=== PATIENT | male | born 1960 | race Caucasian/White ===

== ENCOUNTER 2017-01-28 17:01 | Emergency (ER) | payer MEDICAID ==
[~2017-01-28] VITALS: Ht 175.3 cm; Wt 70.0 kg
[~2017-01-28 17:01] MED LIST: ALPR0.25 PO; FAMO20TA7 PO; GABA600T2 PO; LORA-445 PO; ONDA8TAB16 SL; TRAZ100T15 PO; [UNRECOGNIZED DRUG - REMARK]
[2017-01-28 19:05] VITALS: BP 94/61
== END 2017-01-28 19:23 | disposition home or self-care (01) ==
LOC: ED 19:17
DX: F10.220 Alcohol dependence with intoxication, uncomplicated (principal); B34.9 Viral infection, unspecified; J44.9 Chronic obstructive pulmonary disease, unspecified; M06.9 Rheumatoid arthritis, unspecified; Z85.118 Personal history of other malignant neoplasm of bronchus and lung
CPT/HCPCS: 71010; 99283

== ENCOUNTER 2017-01-29 13:52 | Emergency (ER) | payer MEDICAID ==
[~2017-01-29] VITALS: Ht 152.4 cm; Wt 56.8 kg
[2017-01-29] MEDS ORDERED: THIAMINE 100MG TABLET PO ONE (14:30)
[2017-01-29] MEDS ORDERED: SODIUM CHLORIDE FLUSH 10ML SYR IVF ONE (14:30)
[2017-01-29] MEDS ORDERED: SODIUM CHLORIDE 0.9% 1,000ML IVBOLUS ONE ×2 (14:30→16:30)
[2017-01-29] MEDS ORDERED: LORazepam 2 MG/ML, 1ML IVPush ONE (14:30)
[2017-01-29] MEDS ORDERED: THIAMINE 100MG TABLET ONE (14:40)
[2017-01-29] MEDS ORDERED: LORazepam 2 MG/ML, 1ML ONE (14:43)
[2017-01-29 15:24] LABS: HEMOGLOBIN 13.8 g/dL (13.7-18.0)
[2017-01-29 15:37] LABS: ASPARTATE AMINO TRANSFERASE 22 U/L (15-37); BLOOD UREA NITROGEN 11 mg/dL (7-18)
[2017-01-29] MEDS ORDERED: DEXTROSE 50%, 50ML SYRINGE ONE (15:41)
[2017-01-29 19:00] VITALS: BP 105/74
== END 2017-01-29 19:07 | disposition home or self-care (01) ==
LOC: ED 18:55
DX: F10.229 Alcohol dependence with intoxication, unspecified (principal); Y90.9 Presence of alcohol in blood, level not specified; R10.13 Epigastric pain; K80.20 Calculus of gallbladder without cholecystitis without obstruction
CPT/HCPCS: 36415; 74000; 76700; 80053; 83690; 85025; 85610; 96361; 96374; 99285; J2060; J7030

== ENCOUNTER 2017-02-06 18:44 | Emergency (ER) | payer MEDICAID ==
[~2017-02-06] VITALS: Ht 162.6 cm; Wt 65.5 kg
[~2017-02-06 18:44] MED LIST changes: +GUAI200T3 PO; +LORA-446 PO; +MAGN400T26 PO
[2017-02-06] MEDS ORDERED: ONDANSETRON ODT 4 MG ONE (19:14)
[2017-02-06] MEDS ORDERED: ONDANSETRON ODT 4 MG PO ONE (19:30)
[2017-02-06 19:35] LABS: HEMOGLOBIN 11.3 g/dL (13.7-18.0)
[2017-02-06 19:42] LABS: ASPARTATE AMINO TRANSFERASE 25 U/L (15-37); BLOOD UREA NITROGEN 5 mg/dL (7-18)
[2017-02-06 20:14] VITALS: BP 91/65
[2017-02-06] MEDS ORDERED: CHLORDIAZEPOXIDE 25 MG CAPSULE PO PRN (20:30)
== END 2017-02-06 20:41 | disposition home or self-care (01) ==
LOC: ED 20:35
DX: F10.20 Alcohol dependence, uncomplicated (principal); C34.90 Malignant neoplasm of unspecified part of unspecified bronchus or lung; M06.9 Rheumatoid arthritis, unspecified
CPT/HCPCS: 36415; 80053; 80307; 83690; 85025; 99284; Q0162

== ENCOUNTER 2017-02-07 00:17 | Emergency (ER) | payer MEDICAID ==
[~2017-02-07] VITALS: Ht 167.6 cm; Wt 60.0 kg
[2017-02-07 01:11] VITALS: BP 103/74
== END 2017-02-07 01:13 | disposition home or self-care (01) ==
LOC: ED 01:07
DX: F10.229 Alcohol dependence with intoxication, unspecified (principal); J44.9 Chronic obstructive pulmonary disease, unspecified; F10.20 Alcohol dependence, uncomplicated; Y90.9 Presence of alcohol in blood, level not specified
CPT/HCPCS: 99283

== ENCOUNTER 2017-02-13 01:52 | Emergency (ER) | payer MEDICAID ==
[~2017-02-13] VITALS: Ht 160 cm; Wt 62.0 kg
[2017-02-13] MEDS ORDERED: DICYCLOMINE 10 MG/ML, 2ML IM ONE (02:30)
[2017-02-13 02:56] LABS: ASPARTATE AMINO TRANSFERASE 17 U/L (15-37); BLOOD UREA NITROGEN 6 mg/dL (7-18)
[2017-02-13] MEDS ORDERED: PLEASE ENTER ALLERGIES MC SCH ×2 (03:00)
[2017-02-13 03:10] LABS: HEMOGLOBIN 12.9 g/dL (13.7-18.0)
[2017-02-13 03:23] LABS: DIFF TOTAL CELLS COUNTED 100 CELL DIFF
[2017-02-13 03:27] LABS: ANISOCYTOSIS 2+; HYPOCHROMIA 1+; OVALOCYTES 1+; POLYCHROMASIA 1+; VERIFY COUNTS? YES
[2017-02-13] MEDS ORDERED: FAMOTIDINE 20 MG TABLET ONE ×2 (03:59→07:45)
[2017-02-13] MEDS ORDERED: ONDANSETRON ODT 4 MG ONE ×2 (03:59→07:46)
[2017-02-13] MEDS ORDERED: MAALOX/HYOSCYAMINE/LIDOCAINE 45 ML BOTTLE ONE ×2 (03:59→07:46)
[2017-02-13] MEDS ORDERED: ONDANSETRON ODT 4 MG PO ONE (04:00)
[2017-02-13] MEDS ORDERED: FAMOTIDINE 20 MG TABLET PO ONE (04:00)
[2017-02-13] MEDS ORDERED: MAALOX/HYOSCYAMINE/LIDOCAINE 45 ML BOTTLE PO ONE (04:00)
[2017-02-13 08:50] VITALS: BP 91/55
== END 2017-02-13 08:52 | disposition home or self-care (01) ==
LOC: EDBD → MERGE 01:52 → ED 03:07
DX: K29.20 Alcoholic gastritis without bleeding (principal); F10.20 Alcohol dependence, uncomplicated; J44.9 Chronic obstructive pulmonary disease, unspecified; Z85.118 Personal history of other malignant neoplasm of bronchus and lung
CPT/HCPCS: 36415; 80053; 80307; 83690; 85025; 96372; 99284; J0500; Q0162

== ENCOUNTER 2017-03-20 19:55 | Emergency (ER) | payer MEDICAID ==
[~2017-03-20] VITALS: Ht 162.6 cm; Wt 60.0 kg
[2017-03-20 20:31] LABS: BLOOD UREA NITROGEN 6 mg/dL (7-18)
[2017-03-20 20:40] LABS: DIFF TOTAL CELLS COUNTED 100 CELL DIFF
[2017-03-20 20:46] LABS: ANISOCYTOSIS 1+; OVALOCYTES 1+; VERIFY COUNTS? YES
[2017-03-20 20:47] LABS: MICROCYTOSIS 1+; POLYCHROMASIA 1+
[2017-03-20 20:53] VITALS: BP 106/76
== END 2017-03-20 22:04 | disposition home or self-care (01) ==
LOC: ED 21:15
DX: F10.220 Alcohol dependence with intoxication, uncomplicated (principal); J44.9 Chronic obstructive pulmonary disease, unspecified; F10.20 Alcohol dependence, uncomplicated; L93.0 Discoid lupus erythematosus; M06.9 Rheumatoid arthritis, unspecified; Z85.118 Personal history of other malignant neoplasm of bronchus and lung; Z87.01 Personal history of pneumonia (recurrent)
CPT/HCPCS: 36415; 71010; 80048; 82040; 85025

== ENCOUNTER 2017-03-21 04:40 | Emergency (ER) | payer MEDICAID ==
[~2017-03-21] VITALS: Ht 162.6 cm; Wt 60.0 kg
[2017-03-21] MEDS ORDERED: ALBUTEROL/IPRATROPIUM 2.5MG/0.5MG, 3 ML NPPB ONE (06:00)
[2017-03-21] MEDS ORDERED: ALBUTEROL/IPRATROPIUM 2.5MG/0.5MG, 3 ML ONE ×2 (06:07→08:39)
[2017-03-21 06:15] LABS: ACETAMINOPHEN < 2 mcg/mL (10-30)
[2017-03-21 12:01] VITALS: BP 123/71
== END 2017-03-21 12:31 | disposition home or self-care (01) ==
LOC: ED 05:20
DX: F10.220 Alcohol dependence with intoxication, uncomplicated (principal); F17.210 Nicotine dependence, cigarettes, uncomplicated; Z87.01 Personal history of pneumonia (recurrent); Z88.0 Allergy status to penicillin; Z88.5 Allergy status to narcotic agent
CPT/HCPCS: 36415; 80307; 80329; 94640; 99284; J7512; J7620; G0480

== ENCOUNTER 2017-03-21 16:22 | Emergency (ER) | payer MEDICAID ==
[~2017-03-21] VITALS: Ht 167.6 cm; Wt 65.0 kg
== END 2017-03-21 17:11 | disposition home or self-care (01) ==
LOC: ED 17:02
DX: F10.229 Alcohol dependence with intoxication, unspecified (principal); F19.94 Other psychoactive substance use, unspecified with psychoactive substance-induced mood disorder; C34.90 Malignant neoplasm of unspecified part of unspecified bronchus or lung
CPT/HCPCS: 99283

== ENCOUNTER 2017-03-22 10:31 | Emergency (ER) | payer MEDICAID ==
[2017-03-22 10:39] VITALS: BP 116/84
== END 2017-03-22 12:29 | disposition home or self-care (01) ==
LOC: ED 12:23
DX: F10.229 Alcohol dependence with intoxication, unspecified (principal); Y90.9 Presence of alcohol in blood, level not specified
CPT/HCPCS: 99283

== ENCOUNTER 2017-04-11 03:04 | Emergency (ER) | payer MEDICAID ==
[~2017-04-11] VITALS: Ht 162.6 cm; Wt 63.0 kg
[2017-04-11 03:09] VITALS: BP 116/73
[2017-04-11] MEDS ORDERED: ONDANSETRON ODT 8 MG PO ONE (03:30)
[2017-04-11] MEDS ORDERED: ONDANSETRON ODT 8 MG ONE (03:46)
[2017-04-11 03:54] LABS: BLOOD UREA NITROGEN 6 mg/dL (7-18)
[2017-04-11 03:59] LABS: ASPARTATE AMINO TRANSFERASE 92 U/L (15-37)
== END 2017-04-11 04:31 | disposition home or self-care (01) ==
LOC: ED 03:43
DX: R10.84 Generalized abdominal pain (principal); R11.10 Vomiting, unspecified; I48.91 Unspecified atrial fibrillation; Z85.118 Personal history of other malignant neoplasm of bronchus and lung; Z88.0 Allergy status to penicillin; Z88.6 Allergy status to analgesic agent; Z90.49 Acquired absence of other specified parts of digestive tract; F10.120 Alcohol abuse with intoxication, uncomplicated; F17.210 Nicotine dependence, cigarettes, uncomplicated
CPT/HCPCS: 36415; 80053; 80307; 83690; 85025; 99284; Q0162

== ENCOUNTER 2017-04-18 16:51 | Emergency (ER) | payer MEDICAID ==
[~2017-04-18] VITALS: Ht 162.6 cm; Wt 62.0 kg
[2017-04-18 17:01] VITALS: BP 94/70
[2017-04-18 17:50] LABS: BLOOD UREA NITROGEN 11 mg/dL (7-18)
[2017-04-18 17:53] LABS: ASPARTATE AMINO TRANSFERASE 30 U/L (15-37)
[2017-04-18 18:11] LABS: DIFF TOTAL CELLS COUNTED 100 CELL DIFF
[2017-04-18 18:14] LABS: VERIFY COUNTS? YES
[2017-04-18 18:15] LABS: ANISOCYTOSIS 1+
[2017-04-18 18:16] LABS: MICROCYTOSIS 1+; OVALOCYTES 1+
[2017-04-18] MEDS ORDERED: ONDANSETRON ODT 4 MG PO ONE (19:30)
== END 2017-04-18 22:58 | disposition home or self-care (01) ==
LOC: ED 17:18
DX: F10.120 Alcohol abuse with intoxication, uncomplicated (principal); Z72.89 Other problems related to lifestyle; R10.84 Generalized abdominal pain; J44.9 Chronic obstructive pulmonary disease, unspecified; Z91.14 Patient's other noncompliance with medication regimen; Z85.118 Personal history of other malignant neoplasm of bronchus and lung; F19.10 Other psychoactive substance abuse, uncomplicated
CPT/HCPCS: 36415; 80053; 83690; 85025; 99284

== ENCOUNTER 2017-08-23 17:22 | Emergency (ER) | payer MEDICAID ==
[~2017-08-23] VITALS: Ht 165.1 cm; Wt 55.0 kg
[2017-08-23] MEDS ORDERED: ONDANSETRON 2MG/ML, 2ML IVPush ONE (18:00)
[2017-08-23] MEDS ORDERED: ONDANSETRON 2MG/ML, 2ML ONE (18:47)
[2017-08-23 18:52] LABS: HEMATOCRIT 36.6 % (39.2-51.8); HEMOGLOBIN 11.8 g/dL (13.7-18.0); WHITE BLOOD COUNT 5.6 x10^3/uL (3.4-10)
[2017-08-23] MEDS ORDERED: SODIUM CHLORIDE 0.9% 1,000 ML IV ONE (19:00)
[2017-08-23] MEDS ORDERED: SODIUM CHLORIDE FLUSH 10ML SYR IVF ONE (19:00)
[2017-08-23 19:11] LABS: DIFF TOTAL CELLS COUNTED 100 CELL DIFF
[2017-08-23 19:13] LABS: ANISOCYTOSIS 1+; MICROCYTOSIS 1+; OVALOCYTES 1+
[2017-08-23 19:15] LABS: VERIFY COUNTS? YES
[2017-08-23 19:41] LABS: ASPARTATE AMINO TRANSFERASE 42 U/L (15-37); BLOOD UREA NITROGEN 8 mg/dL (7-18)
[2017-08-23] MEDS ORDERED: OMNIPAQUE 350 MG/ML, 100ML BOTTLE ONE (21:36)
[2017-08-23 21:40] VITALS: BP 134/92
== END 2017-08-23 22:06 | disposition home or self-care (01) ==
LOC: ED 20:41
DX: K52.9 Noninfective gastroenteritis and colitis, unspecified (principal); F41.9 Anxiety disorder, unspecified; J44.9 Chronic obstructive pulmonary disease, unspecified; F17.200 Nicotine dependence, unspecified, uncomplicated; Z88.0 Allergy status to penicillin; Z90.49 Acquired absence of other specified parts of digestive tract
CPT/HCPCS: 36415; 74177; 80053; 81003; 83605; 83690; 85025; 85610; 85730; 96361; 96374; 99285; J2405; J7030; Q9967

== ENCOUNTER 2017-10-18 14:05 | Emergency (ER) | payer MEDICAID ==
[~2017-10-18] VITALS: Ht 162.6 cm; Wt 55.0 kg
[2017-10-18] MEDS ORDERED: SODIUM CHLORIDE 0.9% 1,000 ML IV ONE (14:29)
[2017-10-18] MEDS ORDERED: SODIUM CHLORIDE FLUSH 10ML SYR IVF ONE (14:30)
[2017-10-18] MEDS ORDERED: SODIUM CHLORIDE 0.9% 1,000ML IVBOLUS ONE (14:30)
[2017-10-18] MEDS ORDERED: PLEASE ENTER HEIGHT AND WEIGHT MC SCH (15:00)
[2017-10-18 15:17] LABS: BLOOD UREA NITROGEN 4 mg/dL (7-18)
[2017-10-18 15:21] LABS: ASPARTATE AMINO TRANSFERASE 140 U/L (15-37)
[2017-10-18 15:24] LABS: IS PT STATUS REG ER OR PRE ER? YES
[2017-10-18 15:29] LABS: HEMOGLOBIN 12.5 g/dL (13.7-18.0); WHITE BLOOD COUNT 4.6 x10^3/uL (3.4-10)
[2017-10-18 15:43] LABS: DIFF TOTAL CELLS COUNTED 100 CELL DIFF
[2017-10-18 16:02] VITALS: BP 109/54
[2017-10-18 16:18] LABS: VERIFY COUNTS? YES
[2017-10-18 16:20] LABS: ANISOCYTOSIS 1+; HYPOCHROMIA 1+; MICROCYTOSIS 1+
[2017-10-18 16:21] LABS: OVALOCYTES 1+
== END 2017-10-18 16:04 | disposition home or self-care (01) ==
LOC: ED 14:59
DX: F10.220 Alcohol dependence with intoxication, uncomplicated (principal); E87.1 Hypo-osmolality and hyponatremia
CPT/HCPCS: 36415; 70450; 71010; 80053; 80307; 83690; 84484; 85025; 85610; 93005; 96360; 99285; J7030; G0479

== ENCOUNTER 2017-10-27 13:16 | Emergency (ER) | payer MEDICAID ==
[~2017-10-27] VITALS: Ht 162.6 cm; Wt 65.0 kg
[2017-10-27 14:45] VITALS: BP 109/75
== END 2017-10-27 14:52 | disposition home or self-care (01) ==
LOC: EDBD → MERGE 13:16 → ED 14:25
DX: S42.032A Displaced fracture of lateral end of left clavicle, initial encounter for closed fracture (principal); F17.200 Nicotine dependence, unspecified, uncomplicated; J44.9 Chronic obstructive pulmonary disease, unspecified; W01.0XXA Fall on same level from slipping, tripping and stumbling without subsequent striking against object, initial encounter; Y93.01 Activity, walking, marching and hiking; Y92.481 Parking lot as the place of occurrence of the external cause; Y99.8 Other external cause status
CPT/HCPCS: 99284

== ENCOUNTER 2018-01-16 12:38 | Emergency (ER) | payer MEDICAID ==
[~2018-01-16] VITALS: Ht 162.6 cm; Wt 54.5 kg
[2018-01-16] MEDS ORDERED: SODIUM CHLORIDE 0.9% 1,000ML IVBOLUS ONE (13:00)
[2018-01-16 13:20] LABS: ALBUMIN 3.2 g/dL (3.4-5.0); ANION GAP 13 mmol/L (5-15); CALCIUM 7.8 mg/dL (8.5-10.1); CHLORIDE 98 mmol/L (98-107); CREATININE 0.79 mg/dL (0.7-1.3)
[2018-01-16 13:22] LABS: MD YES; MEAN CORPUSCULAR HEMOGLOBIN 26.3 pg (27.5-34.5); MEAN CORPUSCULAR HGB CONC 32.3 g/dL (33.2-36.2); MEAN CORPUSCULAR VOLUME 81.6 fL (81-97); MEAN PLATELET VOLUME 6.9 fL (7.4-10.4); PLATELET COUNT 119 x10^3/uL (130-400); RED BLOOD COUNT 4.12 x10^6/uL (4.38-5.82); RED CELL DISTRIBUTION WIDTH 19.5 % (9.4-14.8)
[2018-01-16] MEDS ORDERED: THIAMINE 100MG TABLET PO ONE (13:30)
[2018-01-16] MEDS ORDERED: THIAMINE 100MG TABLET ONE (13:32)
[2018-01-16 13:33] LABS: ANISOCYTOSIS 1+; EOS#(MANUAL) 0.05 x10^3/uL (0.0-0.4); EOS% (MANUAL) 1 % (1-7); LYMPH#(MANUAL) 1.27 x10^3/uL (1-3.4); LYMPHS% (MANUAL) 26 % (22-44); MICROCYTOSIS 1+; MONOS#(MANUAL) 0.34 x10^3/uL (0.3-2.7); MONOS% (MANUAL) 7 % (2-9); POLYCHROMASIA 1+; SEG#(MANUAL) 3.23 x10^3/uL (1.8-6.8); SEGS% (MANUAL) 66 % (42-75); TARGET CELLS 1+
[2018-01-16 13:35] LABS: <PLATELET ESTIMATE> DECREASED; <PLT MORPHOLOGY> NORMAL PLT MORPH
[2018-01-16 14:40] VITALS: BP 124/92
[2018-01-16] MEDS ORDERED: LORazepam 1MG TABLET PO ONE (15:00)
== END 2018-01-16 15:26 | disposition home or self-care (01) ==
LOC: ED 15:22
DX: S06.0X0A Concussion without loss of consciousness, initial encounter (principal); S00.93XA Contusion of unspecified part of head, initial encounter; G89.29 Other chronic pain; M54.2 Cervicalgia; J44.1 Chronic obstructive pulmonary disease with (acute) exacerbation; D50.0 Iron deficiency anemia secondary to blood loss (chronic); F41.9 Anxiety disorder, unspecified; F17.210 Nicotine dependence, cigarettes, uncomplicated; M06.9 Rheumatoid arthritis, unspecified; I48.91 Unspecified atrial fibrillation; E87.1 Hypo-osmolality and hyponatremia; F10.229 Alcohol dependence with intoxication, unspecified; W00.0XXA Fall on same level due to ice and snow, initial encounter; Y93.89 Activity, other specified; Y92.410 Unspecified street and highway as the place of occurrence of the external cause; Y99.8 Other external cause status
CPT/HCPCS: 36415; 70450; 71046; 72125; 80048; 82040; 85025; 93005; 99285

== ENCOUNTER 2018-01-27 20:28 | Emergency (ER) | payer MEDICAID ==
[~2018-01-27] VITALS: Ht 157.5 cm; Wt 59.0 kg
[2018-01-27 20:31] VITALS: BP 109/79
== END 2018-01-27 22:16 | disposition left against medical advice (07) ==
LOC: ED 21:00
DX: J06.9 Acute upper respiratory infection, unspecified (principal)
CPT/HCPCS: 71045; 93005; 99284

== ENCOUNTER 2018-04-20 14:36 | Emergency (ER) | payer MEDICAID ==
[~2018-04-20] VITALS: Ht 175.3 cm; Wt 87.0 kg
[2018-04-20] MEDS ORDERED: THIAMINE 100MG TABLET PO ONE (15:00)
[2018-04-20] MEDS ORDERED: THIAMINE 100MG TABLET ONE (15:18)
[2018-04-20] MEDS ORDERED: ONDANSETRON ODT 4 MG PO ONE (20:30)
[2018-04-20] MEDS ORDERED: ONDANSETRON ODT 4 MG ONE (20:36)
[2018-04-20 20:38] VITALS: BP 91/55
== END 2018-04-20 22:07 | disposition home or self-care (01) ==
LOC: ED 16:03
DX: F10.220 Alcohol dependence with intoxication, uncomplicated (principal); J44.9 Chronic obstructive pulmonary disease, unspecified; I48.91 Unspecified atrial fibrillation; F17.210 Nicotine dependence, cigarettes, uncomplicated; Z79.899 Other long term (current) drug therapy
CPT/HCPCS: 36415; 80307; 99283; Q0162

== ENCOUNTER 2020-09-11 15:15 | Inpatient (IN) | payer MEDICAID ==
[~2020-09-11] VITALS: Ht 160 cm; Wt 51.8 kg
[~2020-09-11 15:15] MED LIST changes: -GABA600T2 PO; +GABA600T7 PO; -GUAI200T3 PO; +GUAI200T37 PO; +TRAZ-175 PO; -TRAZ100T15 PO
--- NOTE | 2020-09-11 15:25 | NUR ---
PT TO [facility] FROM [facility] AT THIS TIME
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
[2020-09-11 16:12] LABS: BASOPHILS % (AUTO) 0 % (0-1); EOSINOPHILS % (AUTO) 0 % (1-7); LYMPHOCYTES % (AUTO) 6 % (22-44); MEAN CORPUSCULAR HEMOGLOBIN 28.5 pg (27.5-34.5); MEAN CORPUSCULAR HGB CONC 32.5 g/dL (33.2-36.2); MEAN PLATELET VOLUME 6.9 fL (7.4-10.4); MONOCYTES % (AUTO) 7 % (2-9); NEUTROPHILS % (AUTO) 87 % (42-75); PLATELET COUNT 160 x10^3/uL (130-400); RED BLOOD COUNT 3.96 x10^6/uL (4.38-5.82); RED CELL DISTRIBUTION WIDTH 19.7 % (9.4-14.8)
[2020-09-11 16:21] LABS: ALANINE AMINOTRANSFERASE 29 U/L (12-78); ALBUMIN 3.5 g/dL (3.4-5.0); CALCIUM 7.9 mg/dL (8.5-10.1); CHLORIDE 88 mmol/L (98-107); CREATININE 0.64 mg/dL (0.7-1.3)
[2020-09-11 16:23] LABS: ALKALINE PHOSPHATASE 86 U/L (45-117); BILIRUBIN,TOTAL 0.8 mg/dL (0.2-1.0); TOTAL PROTEIN 7.4 g/dL (6.4-8.2)
[2020-09-11 16:30] LABS: ANION GAP 24 mmol/L (5-15)
[2020-09-11] MEDS ORDERED: POTASSIUM CHLORIDE 20 MEQ TAB.ER.PRT PO ONE (17:00)
[2020-09-11] MEDS ORDERED: SODIUM CHLORIDE FLUSH 10ML SYR IVF ONE (17:00)
[2020-09-11] MEDS ORDERED: SODIUM CHLORIDE 0.9% 1,000ML IVBOLUS ONE (17:00)
[2020-09-11] MEDS ORDERED: MAGNESIUM SULFATE/D5W 100 ML IVPB ONE (17:00)
[2020-09-11] MEDS ORDERED: POTASSIUM CHLORIDE 20 MEQ TAB.ER.PRT ONE (17:00)
[2020-09-11] MEDS ORDERED: POTASSIUM CHLORIDE 40 MEQ in SODIUM CHLORIDE 0.9% 500 ML IV ONE (17:00)
[2020-09-11 17:04] LABS: MD SCAN
--- NOTE | 2020-09-11 17:41 | NUR ---
PER ERMD OK TO FEED PT. MEAL TRAY ORDERED. PIV ACCESS ACHEIVED X2, AWAITING MEDICATIONS FROM PHARMACY.
--- NOTE | 2020-09-11 18:29 | NUR ---
PT GIVEN MEAL TRAY, MEDICATED PER JAN, VSS, NAD
--- NOTE | 2020-09-11 18:52 | NUR ---
REPORT RECEIVED FROM RACHELE PERRY. PLAN OF CARE DISCUSSED
--- NOTE | 2020-09-11 18:54 | NUR ---
PHARMACY CALLED TO SEND MG 1GM
[2020-09-11] MEDS ORDERED: PROMETHAZINE 25 MG/ML, 1ML ONE (19:21)
[2020-09-11] MEDS ORDERED: PROMETHAZINE 25 MG/ML, 1ML IM ONE (19:30)
--- NOTE | 2020-09-11 19:30 | NUR ---
MEDICATED PER EMAR, TOLERATED WELL. ADMITTING CLIENT REPORTING ASSOCIATE TO ROOM
[2020-09-11] MEDS: ENOXAPARIN 40 MG/0.4 ML SQ SCH (20:30)
[2020-09-11] MEDS: POTASSIUM CHLORIDE 20 MEQ, MVI ADULT 10 ML, FOLIC ACID 1 MG, MAGNESIUM SULFATE 1 GM in ... IV SCH (20:30)
[2020-09-11] MEDS ORDERED: FOLIC ACID 5 MG/ML IM ONE (20:30)
[2020-09-11] MEDS ORDERED: LORazepam 2 MG/ML, 1ML IV PRN ×3 (20:30)
--- NOTE | 2020-09-11 20:32 | NUR ---
IVF WITH ELECTROLYTES HELD PER ADMITTING IT COMPLIANCE MANAGER ORDERS PATIENT GOT IV POTASSIUM AND MAGNESIUM ED ORDERS.
[2020-09-11] MEDS: MAGNESIUM CHLORIDE 64 MG TABLET.DR PO SCH (21:00)
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
--- NOTE | 2020-09-11 21:29 | NUR ---
ATTEMPTED TO CONTACT ADMITTING MANAGER PLUMBING DUE TO PATIENT COMPLAINT OF ITCHING/HIVES, PHONE WENT STRAIGHT TO VOICEMAIL, UNABLE TO LEAVE MESSAGE PHONE DISCONNECTED.
[2020-09-11] MEDS ORDERED: DIPHENHYDRAMINE 25 MG CAPSULE ONE (21:43)
--- NOTE | 2020-09-11 21:59 | NUR ---
REPORT GIVEN TO RACHELE BOX. PLAN OF CARE DISCUSSED
[2020-09-11] MEDS ORDERED: DIPHENHYDRAMINE 25 MG CAPSULE PO ONE (22:00)
[2020-09-11] MEDS ORDERED: LORazepam 2 MG/ML, 1ML ONE (22:11)
[2020-09-11] MEDS ORDERED: ONDANSETRON 2MG/ML, 2ML ONE (22:11)
[2020-09-11] MEDS: LORazepam 2 MG/ML, 1ML IV PRN (22:19)
[2020-09-11] MEDS ORDERED: ONDANSETRON 2MG/ML, 2ML IVPush PRN (22:30)
--- NOTE | 2020-09-11 22:35 | NUR ---
Patient noted to be having a large amount of vomit and nausea. Verbal order given for zofran, patient medication per MAR and CIWA score. Patient placed on electromagnet crane operator and oxygen. Patient stated that he wears 3L NC oxygen at home. Was placed on oxygen 2200. Patient resting at this time will con't to monitor
[2020-09-12 00:55] VITALS: BP 126/83
[2020-09-12] MEDS ORDERED: FOLIC ACID 1 MG TABLET PO ONE (01:00)
[2020-09-12] MEDS: LORazepam 2 MG/ML, 1ML IV PRN ×3 (02:16→22:51)
[2020-09-12] MEDS: POTASSIUM CHLORIDE 20 MEQ, MVI ADULT 10 ML, FOLIC ACID 1 MG, MAGNESIUM SULFATE 1 GM in ... IV SCH ×2 (02:21→12:33)
[2020-09-12 05:40] LABS: ANION GAP 7 mmol/L (5-15); CALCIUM 7.8 mg/dL (8.5-10.1); CHLORIDE 96 mmol/L (98-107); CREATININE 0.69 mg/dL (0.7-1.3)
[2020-09-12 05:46] LABS: BASOPHILS % (AUTO) 1 % (0-1); EOSINOPHILS % (AUTO) 2 % (1-7); LYMPHOCYTES % (AUTO) 16 % (22-44); MEAN CORPUSCULAR HEMOGLOBIN 28.6 pg (27.5-34.5); MEAN CORPUSCULAR HGB CONC 32.6 g/dL (33.2-36.2); MEAN PLATELET VOLUME 7.3 fL (7.4-10.4); MONOCYTES % (AUTO) 10 % (2-9); NEUTROPHILS % (AUTO) 72 % (42-75); PLATELET COUNT 110 x10^3/uL (130-400); RED BLOOD COUNT 3.53 x10^6/uL (4.38-5.82); RED CELL DISTRIBUTION WIDTH 19.4 % (9.4-14.8)
[2020-09-12 05:47] LABS: MD NO
[2020-09-12] MEDS ORDERED: POTASSIUM PHOSPHATE 22 MEQ in SODIUM CHLORIDE 0.9% 500 ML IV ONE (08:00)
[2020-09-12 08:20] VITALS: BP 132/84
[2020-09-12] MEDS: MAGNESIUM CHLORIDE 64 MG TABLET.DR PO SCH ×3 (09:42→20:08)
[2020-09-12] MEDS: MULTIVITAMINS/MINERALS TABLET PO SCH (09:42)
[2020-09-12 13:22] VITALS: BP 110/74
[2020-09-12] MEDS: ONDANSETRON 2MG/ML, 2ML IVPush PRN ×2 (17:55→23:14)
[2020-09-12] MEDS ORDERED: MAGNESIUM SULFATE PMX 4GM/100M 100 ML IVPB ONE (19:30)
[2020-09-12] MEDS: ALUMINUM/MAG/SIMETHICONE 30 ML UDC PO PRN (20:08)
[2020-09-12] MEDS: ENOXAPARIN 40 MG/0.4 ML SQ SCH (20:09)
[2020-09-12 20:25] VITALS: BP 121/83
[2020-09-12] MEDS ORDERED: PERMETHRIN CRM 5%, 60GM TP ONE (20:30)
[2020-09-12] MEDS: TRAZODONE 100MG TABLET PO PRN (22:18)
[2020-09-13 01:26] VITALS: BP 109/79
[2020-09-13] MEDS: ONDANSETRON 2MG/ML, 2ML IVPush PRN ×2 (05:23→10:28)
[2020-09-13 05:49] LABS: BASOPHILS % (AUTO) 1 % (0-1); EOSINOPHILS % (AUTO) 3 % (1-7); LYMPHOCYTES % (AUTO) 19 % (22-44); MEAN CORPUSCULAR HEMOGLOBIN 28.9 pg (27.5-34.5); MEAN CORPUSCULAR HGB CONC 32.5 g/dL (33.2-36.2); MEAN PLATELET VOLUME 7.7 fL (7.4-10.4); MONOCYTES % (AUTO) 4 % (2-9); NEUTROPHILS % (AUTO) 73 % (42-75); PLATELET COUNT 81 x10^3/uL (130-400); RED CELL DISTRIBUTION WIDTH 20.2 % (9.4-14.8)
[2020-09-13 05:55] LABS: MD NO
[2020-09-13 06:06] LABS: CHLORIDE 99 mmol/L (98-107)
[2020-09-13 06:37] LABS: ALANINE AMINOTRANSFERASE 32 U/L (12-78); ALBUMIN 2.9 g/dL (3.4-5.0); ALKALINE PHOSPHATASE 81 U/L (45-117); ANION GAP 5 mmol/L (5-15); BILIRUBIN,TOTAL 0.6 mg/dL (0.2-1.0); CALCIUM 8.5 mg/dL (8.5-10.1); CREATININE 0.63 mg/dL (0.7-1.3); TOTAL PROTEIN 6.4 g/dL (6.4-8.2)
[2020-09-13] MEDS: MULTIVITAMINS/MINERALS TABLET PO SCH (07:23)
[2020-09-13] MEDS: MAGNESIUM CHLORIDE 64 MG TABLET.DR PO SCH ×3 (07:23→21:02)
[2020-09-13 07:47] VITALS: BP 102/68
[2020-09-13] MEDS: THIAMINE 100MG TABLET PO SCH (08:00)
[2020-09-13] MEDS ORDERED: THIAMINE 100 MG in DEXTROSE 5% 50 ML IVPB SCH (09:00)
[2020-09-13] MEDS: DOCUSATE 100 MG CAPSULE PO PRN ×2 (10:28→21:14)
[2020-09-13] MEDS: ALUMINUM/MAG/SIMETHICONE 30 ML UDC PO PRN ×2 (12:08→21:14)
[2020-09-13] MEDS: POTASSIUM CHLORIDE 20 MEQ, MVI ADULT 10 ML, FOLIC ACID 1 MG, MAGNESIUM SULFATE 1 GM in ... IV SCH (12:08)
[2020-09-13 14:15] VITALS: BP 101/68
[2020-09-13] MEDS ORDERED: CALCIUM CARBONATE 500 MG TAB.CHEW ONE (15:20)
[2020-09-13] MEDS: PROMETHAZINE 25 MG/ML, 1ML IM PRN ×2 (15:25→21:03)
[2020-09-13] MEDS: CALCIUM CARBONATE 500 MG TAB.CHEW PO PRN (15:25)
[2020-09-13 20:30] VITALS: BP 109/69
[2020-09-13] MEDS: TRAZODONE 100MG TABLET PO PRN (21:02)
[2020-09-13] MEDS: ENOXAPARIN 40 MG/0.4 ML SQ SCH (21:03)
[2020-09-14 00:07] VITALS: BP 110/74
[2020-09-14 06:33] VITALS: BP 98/65
[2020-09-14 06:57] LABS: ALBUMIN 2.8 g/dL (3.4-5.0); ANION GAP 7 mmol/L (5-15); CALCIUM 8.7 mg/dL (8.5-10.1); CHLORIDE 97 mmol/L (98-107)
[2020-09-14 07:00] LABS: ALANINE AMINOTRANSFERASE 117 U/L (12-78); ALKALINE PHOSPHATASE 67 U/L (45-117); BILIRUBIN,TOTAL 0.5 mg/dL (0.2-1.0); TOTAL PROTEIN 6.1 g/dL (6.4-8.2)
[2020-09-14] MEDS: THIAMINE 100MG TABLET PO SCH ×2 (08:24→10:55)
[2020-09-14] MEDS: MULTIVITAMINS/MINERALS TABLET PO SCH (08:24)
[2020-09-14] MEDS: MAGNESIUM CHLORIDE 64 MG TABLET.DR PO SCH (08:24)
[2020-09-14] MEDS: PROMETHAZINE 25 MG/ML, 1ML IM PRN (08:25)
[2020-09-14] MEDS ORDERED: MAGNESIUM SULFATE PMX 4GM/100M 100 ML IVPB ONE (09:00)
[2020-09-14] MEDS: ONDANSETRON 2MG/ML, 2ML IVPush PRN ×2 (10:54→16:57)
[2020-09-14] MEDS: CALCIUM CARBONATE 500 MG TAB.CHEW PO PRN ×2 (11:09→22:11)
[2020-09-14] MEDS: ALUMINUM/MAG/SIMETHICONE 30 ML UDC PO PRN ×3 (11:31→19:49)
[2020-09-14] MEDS: DOCUSATE 100 MG CAPSULE PO PRN (11:31)
[2020-09-14 11:51] VITALS: BP 96/63
[2020-09-14] MEDS: POTASSIUM CHLORIDE 20 MEQ TAB.ER.PRT PO SCH (16:58)
[2020-09-14 19:20] VITALS: BP 100/67
[2020-09-14] MEDS: ENOXAPARIN 40 MG/0.4 ML SQ SCH (20:58)
[2020-09-14] MEDS: LORazepam 2 MG/ML, 1ML IV PRN (20:58)
[2020-09-14] MEDS: TRAZODONE 100MG TABLET PO PRN (20:58)
[2020-09-15 01:21] VITALS: BP 96/63
[2020-09-15] MEDS: ONDANSETRON 2MG/ML, 2ML IVPush PRN ×2 (04:01→11:37)
[2020-09-15 06:14] VITALS: BP 108/74
[2020-09-15 06:23] LABS: ALBUMIN 2.8 g/dL (3.4-5.0); CALCIUM 9.4 mg/dL (8.5-10.1)
[2020-09-15 06:26] LABS: ALANINE AMINOTRANSFERASE 131 U/L (12-78); ALKALINE PHOSPHATASE 82 U/L (45-117); BILIRUBIN,TOTAL 0.7 mg/dL (0.2-1.0); CREATININE 0.65 mg/dL (0.7-1.3); TOTAL PROTEIN 6.1 g/dL (6.4-8.2)
[2020-09-15 07:00] LABS: ANION GAP 4 mmol/L (5-15); CHLORIDE 95 mmol/L (98-107)
[2020-09-15] MEDS ORDERED: MAGNESIUM SULFATE PMX 4GM/100M 100 ML IVPB ONE (08:30)
[2020-09-15] MEDS: MULTIVITAMINS/MINERALS TABLET PO SCH (08:53)
[2020-09-15] MEDS: THIAMINE 100MG TABLET PO SCH (08:53)
[2020-09-15] MEDS: POTASSIUM CHLORIDE 20 MEQ TAB.ER.PRT PO SCH (08:53)
[2020-09-15] MEDS: DOCUSATE 100 MG CAPSULE PO PRN (08:53)
[2020-09-15] MEDS: ALUMINUM/MAG/SIMETHICONE 30 ML UDC PO PRN ×2 (10:36→15:50)
[2020-09-15] MEDS: CALCIUM CARBONATE 500 MG TAB.CHEW PO PRN ×2 (10:36→15:50)
[2020-09-15] MEDS: PANTOPRAZOLE 40MG TABLET PO SCH (10:36)
[2020-09-15] MEDS ORDERED: POLYETHYLENE GLYCOL 17 GM PACKET PO PRN (11:00)
[2020-09-15] MEDS ORDERED: PERMETHRIN CRM 5%, 60GM TP SCH (11:00)
[2020-09-15 11:37] VITALS: BP 116/76
[2020-09-15] MEDS: LORazepam 2 MG/ML, 1ML IV PRN (15:50)
[2020-09-15] MEDS ORDERED: ALBUTEROL HFA 90 MCG/SPRAY INH PRN (17:00)
[2020-09-15 19:49] VITALS: BP 138/76
[2020-09-15] MEDS ORDERED: LORazepam 0.5MG TABLET ONE (21:01)
[2020-09-15] MEDS: TRAZODONE 100MG TABLET PO PRN (21:07)
[2020-09-15] MEDS: ENOXAPARIN 40 MG/0.4 ML SQ SCH (21:07)
[2020-09-16 02:00] VITALS: BP 133/72
[2020-09-16] MEDS: PANTOPRAZOLE 40MG TABLET PO SCH (06:10)
[2020-09-16] MEDS: THIAMINE 100MG TABLET PO SCH (07:38)
[2020-09-16] MEDS: MULTIVITAMINS/MINERALS TABLET PO SCH (07:38)
[2020-09-16 08:17] VITALS: BP 93/56
[2020-09-16] MEDS: TIOTROPIUM BROMIDE 18 MCG/INH INH SCH (09:00)
[2020-09-16] MEDS ORDERED: ONDANSETRON ODT 4 MG ONE (10:55)
[2020-09-16] MEDS: CALCIUM CARBONATE 500 MG TAB.CHEW PO PRN ×2 (11:23→20:00)
[2020-09-16] MEDS: ONDANSETRON 2MG/ML, 2ML IVPush PRN (11:23)
[2020-09-16 11:50] LABS: BASOPHILS % (AUTO) 1 % (0-1); EOSINOPHILS % (AUTO) 3 % (1-7); LYMPHOCYTES % (AUTO) 18 % (22-44); MEAN CORPUSCULAR HEMOGLOBIN 28.9 pg (27.5-34.5); MEAN CORPUSCULAR HGB CONC 32.5 g/dL (33.2-36.2); MEAN PLATELET VOLUME 7.4 fL (7.4-10.4); MONOCYTES % (AUTO) 32 % (2-9); NEUTROPHILS % (AUTO) 47 % (42-75); PLATELET COUNT 112 x10^3/uL (130-400); RED CELL DISTRIBUTION WIDTH 20.2 % (9.4-14.8)
[2020-09-16 11:51] LABS: MD NO
[2020-09-16 11:58] LABS: CALCIUM 9.9 mg/dL (8.5-10.1); CREATININE 0.65 mg/dL (0.7-1.3)
[2020-09-16 12:10] LABS: ANION GAP 2 mmol/L (5-15); CHLORIDE 93 mmol/L (98-107)
[2020-09-16 13:38] VITALS: BP 114/79
[2020-09-16] MEDS ORDERED: SODIUM CHLORIDE 0.9% 1,000 ML IV SCH (14:00)
[2020-09-16] MEDS: DIPHENHYDRAMINE/ZINC CRM 2%, 30GM TP PRN (15:26)
[2020-09-16] MEDS: TRAZODONE 100MG TABLET PO PRN (20:00)
[2020-09-16] MEDS: ENOXAPARIN 40 MG/0.4 ML SQ SCH (20:01)
[2020-09-16 20:02] VITALS: BP 117/78
[2020-09-17 01:39] VITALS: BP 115/77
[2020-09-17] MEDS: PANTOPRAZOLE 40MG TABLET PO SCH (06:03)
[2020-09-17 07:05] LABS: CHLORIDE 99 mmol/L (98-107)
[2020-09-17 07:10] LABS: ALANINE AMINOTRANSFERASE 85 U/L (12-78); ALBUMIN 2.7 g/dL (3.4-5.0); ALKALINE PHOSPHATASE 78 U/L (45-117); ANION GAP 6 mmol/L (5-15); BILIRUBIN,TOTAL 0.3 mg/dL (0.2-1.0); CALCIUM 9.1 mg/dL (8.5-10.1); CREATININE 0.59 mg/dL (0.7-1.3); TOTAL PROTEIN 6.5 g/dL (6.4-8.2)
[2020-09-17 07:26] VITALS: BP 110/75
[2020-09-17] MEDS: ONDANSETRON 2MG/ML, 2ML IVPush PRN (07:30)
[2020-09-17] MEDS: CALCIUM CARBONATE 500 MG TAB.CHEW PO PRN ×2 (07:30→20:58)
[2020-09-17] MEDS: MULTIVITAMINS/MINERALS TABLET PO SCH (07:30)
[2020-09-17] MEDS ORDERED: MAGNESIUM SULFATE PMX 4GM/100M 100 ML IVPB ONE (07:30)
[2020-09-17] MEDS: THIAMINE 100MG TABLET PO SCH (07:30)
[2020-09-17] MEDS: DIPHENHYDRAMINE/ZINC CRM 2%, 30GM TP PRN ×2 (07:37→21:04)
[2020-09-17] MEDS: SUCRALFATE 1 GM/10 ML UDC PO SCH ×3 (10:42→20:58)
[2020-09-17 13:00] VITALS: BP 102/69
[2020-09-17] MEDS ORDERED: LORazepam 1MG TABLET PO PRN (16:00)
[2020-09-17] MEDS: TIOTROPIUM BROMIDE 18 MCG/INH INH SCH (16:46)
[2020-09-17 19:27] VITALS: BP 105/65
[2020-09-17] MEDS: ENOXAPARIN 40 MG/0.4 ML SQ SCH (20:58)
[2020-09-17] MEDS: TRAZODONE 100MG TABLET PO PRN (20:58)
[2020-09-18 01:54] VITALS: BP 114/83
[2020-09-18] MEDS: PANTOPRAZOLE 40MG TABLET PO SCH (06:00)
[2020-09-18 06:08] LABS: BASOPHILS % (AUTO) 1 % (0-1); EOSINOPHILS % (AUTO) 3 % (1-7); LYMPHOCYTES % (AUTO) 31 % (22-44); MEAN CORPUSCULAR HEMOGLOBIN 28.9 pg (27.5-34.5); MEAN CORPUSCULAR HGB CONC 32.6 g/dL (33.2-36.2); MEAN PLATELET VOLUME 7.6 fL (7.4-10.4); MONOCYTES % (AUTO) 29 % (2-9); NEUTROPHILS % (AUTO) 37 % (42-75); PLATELET COUNT 163 x10^3/uL (130-400); RED BLOOD COUNT 3.04 x10^6/uL (4.38-5.82); RED CELL DISTRIBUTION WIDTH 19.6 % (9.4-14.8)
[2020-09-18 06:18] LABS: CHLORIDE 99 mmol/L (98-107)
[2020-09-18 06:23] LABS: ALANINE AMINOTRANSFERASE 71 U/L (12-78); ALBUMIN 2.8 g/dL (3.4-5.0); ALKALINE PHOSPHATASE 77 U/L (45-117); ANION GAP 4 mmol/L (5-15); BILIRUBIN,TOTAL 0.2 mg/dL (0.2-1.0); CALCIUM 8.9 mg/dL (8.5-10.1); TOTAL PROTEIN 6.5 g/dL (6.4-8.2)
[2020-09-18 06:28] LABS: MD NO
[2020-09-18] MEDS: THIAMINE 100MG TABLET PO SCH (07:28)
[2020-09-18] MEDS: MULTIVITAMINS/MINERALS TABLET PO SCH (07:28)
[2020-09-18] MEDS: SUCRALFATE 1 GM/10 ML UDC PO SCH ×4 (07:28→20:04)
[2020-09-18] MEDS: TIOTROPIUM BROMIDE 18 MCG/INH INH SCH (07:28)
[2020-09-18 07:51] VITALS: BP 105/72
[2020-09-18] MEDS: ONDANSETRON 2MG/ML, 2ML IVPush PRN (10:05)
[2020-09-18 13:45] VITALS: BP 102/68
[2020-09-18] MEDS ORDERED: MAGNESIUM SULFATE PMX 4GM/100M 100 ML IVPB ONE (16:30)
[2020-09-18 19:17] VITALS: BP 103/71
[2020-09-18] MEDS: TRAZODONE 100MG TABLET PO PRN (20:04)
[2020-09-18] MEDS: ENOXAPARIN 40 MG/0.4 ML SQ SCH (20:04)
[2020-09-18] MEDS: CALCIUM CARBONATE 500 MG TAB.CHEW PO PRN (20:04)
[2020-09-19 01:49] VITALS: BP 105/72
[2020-09-19 05:28] LABS: BASOPHILS % (AUTO) 1 % (0-1); EOSINOPHILS % (AUTO) 2 % (1-7); LYMPHOCYTES % (AUTO) 30 % (22-44); MEAN CORPUSCULAR HEMOGLOBIN 28.6 pg (27.5-34.5); MEAN CORPUSCULAR HGB CONC 32.4 g/dL (33.2-36.2); MEAN PLATELET VOLUME 7.3 fL (7.4-10.4); MONOCYTES % (AUTO) 25 % (2-9); NEUTROPHILS % (AUTO) 43 % (42-75); PLATELET COUNT 189 x10^3/uL (130-400); RED BLOOD COUNT 3.26 x10^6/uL (4.38-5.82); RED CELL DISTRIBUTION WIDTH 19.4 % (9.4-14.8)
[2020-09-19 05:45] LABS: CHLORIDE 99 mmol/L (98-107)
[2020-09-19 05:53] LABS: ANION GAP 5 mmol/L (5-15); CALCIUM 9.3 mg/dL (8.5-10.1); CREATININE 0.57 mg/dL (0.7-1.3)
[2020-09-19 05:55] LABS: MD NO
[2020-09-19 07:23] VITALS: BP 108/73
[2020-09-19] MEDS: SUCRALFATE 1 GM/10 ML UDC PO SCH ×2 (07:34→11:42)
[2020-09-19] MEDS: PANTOPRAZOLE 40MG TABLET PO SCH (07:34)
[2020-09-19] MEDS: THIAMINE 100MG TABLET PO SCH (07:34)
[2020-09-19] MEDS: MULTIVITAMINS/MINERALS TABLET PO SCH (07:34)
[2020-09-19] MEDS: TIOTROPIUM BROMIDE 18 MCG/INH INH SCH (07:35)
[2020-09-19] MEDS: DOCUSATE 100 MG CAPSULE PO PRN (11:42)
[2020-09-19 12:32] VITALS: BP 104/69
== END 2020-09-19 13:56 | disposition home or self-care (01) | DRG 425 ==
LOC: ED 18:12 → EDIP 18:30 → 4WST 09-12 00:31 → 4EST 09-17 16:57
PROVIDERS: ADMIT Internal Medicine; ATTEND Internal Medicine
DX: E87.8 Other disorders of electrolyte and fluid balance, not elsewhere classified (principal); F10.239 Alcohol dependence with withdrawal, unspecified; B86 Scabies; D64.9 Anemia, unspecified; D69.6 Thrombocytopenia, unspecified; E83.51 Hypocalcemia; E83.52 Hypercalcemia; E87.1 Hypo-osmolality and hyponatremia; E87.6 Hypokalemia; F10.229 Alcohol dependence with intoxication, unspecified; F17.200 Nicotine dependence, unspecified, uncomplicated; I48.91 Unspecified atrial fibrillation; J44.9 Chronic obstructive pulmonary disease, unspecified; K76.0 Fatty (change of) liver, not elsewhere classified; M06.9 Rheumatoid arthritis, unspecified; M19.90 Unspecified osteoarthritis, unspecified site; Y90.6 Blood alcohol level of 120-199 mg/100 ml; Z20.828 Contact with and (suspected) exposure to other viral communicable diseases; Z85.118 Personal history of other malignant neoplasm of bronchus and lung; Z90.49 Acquired absence of other specified parts of digestive tract; Z88.0 Allergy status to penicillin; Z88.8 Allergy status to other drugs, medicaments and biological substances
CPT/HCPCS: 36415; 71045; 76700; 80048; 80053; 80074; 80307; 82607; 83735; 84100; 85025; 93005; G0378; J1650; J2405; J2550; J3475; J3480; J7042; J2060; J7030; J7040; Q0163; Q0177; U0003

== ENCOUNTER 2021-01-13 10:24 | Inpatient (IN) | payer MEDICAID ==
[~2021-01-13] VITALS: Ht 160 cm; Wt 52.2 kg
--- NOTE | 2021-01-13 10:48 | NUR ---
Bib by carley from street. Found sitting on sidewalk with his walker not within reach. Reports he slipped and fell on his tailbone. "I've been tired since I binged and drank too much (1/5 of whiskey) 2 days ago no assessed or reported injuries not in assessed acute etoh withdrawal fsbs 150 covered in urine stool vss ecg obtained
--- NOTE | 2021-01-13 11:05 | NUR ---
RADIOLOGY AND LAB AT BEDSIDE
[2021-01-13] MEDS ORDERED: SODIUM CHLORIDE 0.9% 1,000ML IVBOLUS ONE (11:30)
[2021-01-13] MEDS ORDERED: SODIUM CHLORIDE FLUSH 10ML SYR IVF ONE (11:30)
[2021-01-13 11:32] LABS: BASOPHILS % (AUTO) 0 % (0-1); EOSINOPHILS % (AUTO) 0 % (1-7); LYMPHOCYTES % (AUTO) 20 % (22-44); MEAN CORPUSCULAR HGB CONC 32.7 g/dL (33.2-36.2); MEAN PLATELET VOLUME 8.6 fL (7.4-10.4); MONOCYTES % (AUTO) 5 % (2-9); NEUTROPHILS % (AUTO) 75 % (42-75); PLATELET COUNT 101 x10^3/uL (130-400); RED BLOOD COUNT 5.26 x10^6/uL (4.38-5.82); RED CELL DISTRIBUTION WIDTH 28.3 % (9.4-14.8)
[2021-01-13 11:45] LABS: CALCIUM 7.8 mg/dL (8.5-10.1)
[2021-01-13 11:48] LABS: ALANINE AMINOTRANSFERASE 107 U/L (12-78); ALKALINE PHOSPHATASE 129 U/L (45-117); BILIRUBIN,TOTAL 1.2 mg/dL (0.2-1.0); CREATININE 1.49 mg/dL (0.7-1.3); TOTAL PROTEIN 7.8 g/dL (6.4-8.2)
[2021-01-13 11:53] LABS: ANION GAP 32 mmol/L (5-15); CHLORIDE 68 mmol/L (98-107)
[2021-01-13 11:55] LABS: MD MORPH REVIEW ONLY
[2021-01-13 11:56] LABS: ANISOCYTOSIS 1+; MICROCYTOSIS 1+; OVALOCYTES 1+; TEAR DROPS 1+
[2021-01-13 11:57] LABS: <PLATELET ESTIMATE> DECREASED; <PLT MORPHOLOGY> NORMAL PLT MORPH
[2021-01-13] MEDS ORDERED: SODIUM CHLORIDE 0.9% 1,000 ML IV ONE (12:00)
--- NOTE | 2021-01-13 12:01 | NUR ---
Piv placed-1l ns started at 100ml/hr report to jemal jenkins sw consult placed- as patient adamant on leaving hospital despite sodium level in the teens as he has to pay his rent (has the money at home)
--- NOTE | 2021-01-13 12:04 | NUR ---
pt in bed with no signs or symptoms of acute dsitress noted respirations even and unlabored, pt on pie icer machine with shade hugger in place and rn at bedside to start US iv. abnormal lab reported to provider, ordered bolus slowed. call light within reach.
--- NOTE | 2021-01-13 12:47 | NUR ---
pt showered by rn, skin noted to be in tact, pt cleaned and returned safely to bed. pt in bed complaining of 10/10 pain in bilateral shoulders and back. no signs or symptoms of acute dsitress noted respirations even and unlabored, satting well on room air. pt out to imaging with tech as transporter, taken via gurney with no signs or symptoms of acute distress noted, ivf infusing well at l fa.
--- NOTE | 2021-01-13 13:01 | NUR ---
rn at bedside with US to attempt second iv start. pt in bed with no signs or symptoms of acute distress noted respirations even and unlabored, alert and oriented x4, complaining of pain in back and shoulders rated 10/10. pt on cardiac cath tech with bed rails up bilaterally.
[2021-01-13] MEDS ORDERED: MAGNESIUM SULFATE PMX 2GM/50ML 50 ML IVPB ONE (13:30)
[2021-01-13] MEDS ORDERED: MAGNESIUM SULFATE PMX 4GM/100M 100 ML IVPB ONE (13:30)
[2021-01-13] MEDS ORDERED: MAGNESIUM SULFATE PMX 2GM/50ML 50 ML ONE (13:37)
[2021-01-13] MEDS ORDERED: SODIUM CHLORIDE FLUSH 10ML SYR IVF PRN (14:00)
[2021-01-13] MEDS ORDERED: POTASSIUM CHLORIDE 20 MEQ TAB.ER.PRT PO ONE (14:00)
[2021-01-13] MEDS ORDERED: MAGNESIUM SULFATE PMX 4GM/100M 100 ML ONE (14:04)
[2021-01-13] MEDS ORDERED: POTASSIUM CHLORIDE 20 MEQ PACKET ONE (14:05)
[2021-01-13] MEDS ORDERED: ONDANSETRON 2MG/ML, 2ML ONE (14:16)
--- NOTE | 2021-01-13 14:18 | NUR ---
hospitalist at bedside to assess, pt unable to tolerate po potassium. states she will put in for iv k+. new order noted for zofran iv, admistered as ordered. pt on principal planner, with ivf infusing at l fa and mag running at r fa. pt still dry heaving, in high fowlers position in bed with emesis bag in hand. no signs or symptoms of acute distress noted respirations even and unlabored.
[2021-01-13] MEDS ORDERED: POTASSIUM CHLORIDE 20 MEQ in SODIUM CHLORIDE 0.9% 250 ML IV ONE (14:30)
[2021-01-13] MEDS ORDERED: SODIUM CHLORIDE 0.9% 1,000 ML IV SCH (14:30)
[2021-01-13] MEDS ORDERED: ALBUTEROL HFA 90 MCG/SPRAY INH PRN (14:30)
[2021-01-13] MEDS ORDERED: hydrALAzine 20 MG/ML, 1ML IVPush PRN (14:30)
[2021-01-13] MEDS ORDERED: PHENOBARBITAL ETOH DETOX PER PHARMACY MC PRN (14:30)
[2021-01-13] MEDS: ONDANSETRON 2MG/ML, 2ML IVPush PRN (14:36)
--- NOTE | 2021-01-13 14:40 | NUR ---
this rn attempted to call report x2, rn unavailable
[2021-01-13 14:56] LABS: ABSOLUTE RETICS # 0.018 x10^6/uL (0.5-1.5); RED BLOOD COUNT 4.94 x10^6/uL (4.38-5.82); RETICULOCYTE COUNT % 0.36 % (0.5-1.5)
[2021-01-13 15:07] LABS: % IRON SATURATION 37 % (20-55); ANION GAP 32 mmol/L (5-15); CALCIUM 7.4 mg/dL (8.5-10.1); CHLORIDE 69 mmol/L (98-107); CREATININE 1.18 mg/dL (0.7-1.3); IRON LEVEL 100 mcg/dL (65-175); TOTAL IRON BINDING CAPACITY 268 mcg/dL (250-450)
[2021-01-13 15:10] LABS: ACETONE, SERUM Large (80mg/dL) (Negative)
[2021-01-13 15:12] LABS: INTERNATIONAL NORMALIZED RATIO 1.15 (0.93-1.1); PROTHROMBIN TIME 12.3 Seconds (9.6-11.5)
[2021-01-13 15:17] LABS: D-DIMER (DIC) 1.6 ug/mlFEU (0.00-0.52); PROTIME 12.5 Seconds (9.6-11.5); TROPONIN I < 0.015 ng/mL (0.000-0.045)
[2021-01-13] MEDS ORDERED: SODIUM PHOSPHATE 10 MMOL in SODIUM CHLORIDE 0.9% 500 ML IV ONE (15:30)
[2021-01-13] MEDS ORDERED: PHENOBARBITAL SODIUM 500 MG in SODIUM CHLORIDE 0.9% 50 ML IV ONE (16:00)
[2021-01-13 18:08] VITALS: BP 93/66
[2021-01-13 19:36] LABS: ANION GAP 26 mmol/L (5-15); CHLORIDE 72 mmol/L (98-107); CREATININE 1.01 mg/dL (0.7-1.3)
[2021-01-13] MEDS ORDERED: POTASSIUM CHLORIDE 40 MEQ in SODIUM CHLORIDE 0.9% 500 ML IV ONE (20:00)
[2021-01-13] MEDS ORDERED: MORPHINE SULFATE 4 MG/ML, 1ML ONE (20:02)
[2021-01-13] MEDS: morphine SULFATE 10 MG/ML, 1ML IVPush PRN (20:06)
[2021-01-13 23:00] LABS: ANION GAP 20 mmol/L (5-15); CHLORIDE 75 mmol/L (98-107); CREATININE 0.93 mg/dL (0.7-1.3)
[2021-01-13] MEDS ORDERED: PHENOBARBITAL SODIUM 65 MG/ML, 1ML IM SCH (23:00)
[2021-01-14] MEDS ORDERED: POTASSIUM CHLORIDE 20 MEQ TAB.ER.PRT ONE (00:42)
[2021-01-14] MEDS ORDERED: POTASSIUM CHLORIDE 20 MEQ TAB.ER.PRT PO ONE (01:00)
[2021-01-14] MEDS ORDERED: POTASSIUM CHLORIDE 20 MEQ PACKET PO ONE (01:00)
[2021-01-14] MEDS ORDERED: MORPHINE SULFATE 4 MG/ML, 1ML ONE (01:18)
[2021-01-14] MEDS: morphine SULFATE 10 MG/ML, 1ML IVPush PRN ×4 (01:22→21:00)
[2021-01-14 01:48] LABS: MICROSCOPIC INDICATED
[2021-01-14 03:06] LABS: BASOPHILS % (AUTO) 0 % (0-1); EOSINOPHILS % (AUTO) 0 % (1-7); LYMPHOCYTES % (AUTO) 20 % (22-44); MEAN CORPUSCULAR HGB CONC 32.7 g/dL (33.2-36.2); MEAN PLATELET VOLUME 8.5 fL (7.4-10.4); MONOCYTES % (AUTO) 5 % (2-9); NEUTROPHILS % (AUTO) 75 % (42-75); PLATELET COUNT 64 x10^3/uL (130-400); RED BLOOD COUNT 4.07 x10^6/uL (4.38-5.82); RED CELL DISTRIBUTION WIDTH 28.8 % (9.4-14.8)
[2021-01-14 03:12] LABS: ALBUMIN 2.9 g/dL (3.4-5.0); ANION GAP 14 mmol/L (5-15); CALCIUM 6.3 mg/dL (8.5-10.1); CHLORIDE 81 mmol/L (98-107)
[2021-01-14 03:28] LABS: ALANINE AMINOTRANSFERASE 87 U/L (12-78); ALKALINE PHOSPHATASE 92 U/L (45-117); BILIRUBIN,TOTAL 0.5 mg/dL (0.2-1.0); CREATININE 1.05 mg/dL (0.7-1.3); TOTAL PROTEIN 5.9 g/dL (6.4-8.2)
[2021-01-14 03:30] LABS: CREATINE KINASE, TOTAL 1049 U/L (39-308)
[2021-01-14 03:49] LABS: MD SCAN
[2021-01-14] MEDS ORDERED: PANTOPRAZOLE 40 MG IV IVPush SCH (07:30)
[2021-01-14] MEDS: POTASSIUM CHLORIDE 20 MEQ TAB.ER.PRT PO SCH ×3 (07:42→18:47)
[2021-01-14] MEDS: THIAMINE 200 MG in SODIUM CHLORIDE 0.9% 50 ML IV SCH (09:11)
[2021-01-14] MEDS: ONDANSETRON 2MG/ML, 2ML IVPush PRN (11:48)
[2021-01-14] MEDS ORDERED: PERMETHRIN CRM 5%, 60GM TP ONE (12:30)
[2021-01-14 13:10] LABS: CLOSTRIDIUM DIFFICILE ANTIGEN POSITIVE
[2021-01-14 13:11] LABS: CLOSTRIDIUM DIFFICILE TOXIN NEGATIVE (Negative)
[2021-01-14] MEDS: PHENOBARBITAL 20 MG/5 ML ORAL SOL PO SCH (13:16)
[2021-01-14] MEDS: TAMSULOSIN 0.4 MG CAP.ER.24H PO SCH (13:28)
[2021-01-14] MEDS ORDERED: SODIUM CHLORIDE 0.9% 1,000 ML IV SCH (14:30)
[2021-01-14 14:35] LABS: OCCULT BLOOD POSITIVE (NEGATIVE)
[2021-01-14] MEDS: VANCOMYCIN 50 MG/ML ORAL SUSP PO SCH ×2 (15:11→18:01)
[2021-01-14] MEDS ORDERED: DOXYCYCLINE 100 MG in DEXTROSE 5% 250 ML IV SCH (21:00)
[2021-01-14] MEDS ORDERED: CEFTRIAXONE PMX 1GM/50ML 50 ML IV SCH (22:00)
[2021-01-15] MEDS: VANCOMYCIN 50 MG/ML ORAL SUSP PO SCH (00:51)
[2021-01-15] MEDS: PHENOBARBITAL 20 MG/5 ML ORAL SOL PO SCH ×2 (00:51→15:20)
[2021-01-15 04:34] LABS: BASOPHILS % (AUTO) 1 % (0-1); EOSINOPHILS % (AUTO) 0 % (1-7); LYMPHOCYTES % (AUTO) 27 % (22-44); MEAN CORPUSCULAR HEMOGLOBIN 24.9 pg (27.5-34.5); MEAN CORPUSCULAR HGB CONC 32.6 g/dL (33.2-36.2); MEAN PLATELET VOLUME 8.5 fL (7.4-10.4); MONOCYTES % (AUTO) 8 % (2-9); NEUTROPHILS % (AUTO) 65 % (42-75); PLATELET COUNT 52 x10^3/uL (130-400); RED BLOOD COUNT 3.68 x10^6/uL (4.38-5.82); RED CELL DISTRIBUTION WIDTH 28.3 % (9.4-14.8)
[2021-01-15 04:46] LABS: ANION GAP 8 mmol/L (5-15); CHLORIDE 89 mmol/L (98-107); CREATININE 0.52 mg/dL (0.7-1.3)
[2021-01-15 04:57] LABS: MD MORPH REVIEW ONLY
[2021-01-15 05:01] LABS: ANISOCYTOSIS 1+; MICROCYTOSIS 1+
[2021-01-15 05:02] LABS: ECHINOCYTES 1+; OVALOCYTES 1+; SCHISTOCYTES 1+; TEAR DROPS 1+
[2021-01-15 05:03] LABS: <PLATELET ESTIMATE> DECREASED; <PLT MORPHOLOGY> NORMAL PLT MORPH
[2021-01-15] MEDS: METRONIDAZOLE PMX 500MG/100ML 100 ML IV SCH ×3 (07:30→22:44)
[2021-01-15] MEDS ORDERED: SODIUM PHOSPHATE 40 MMOL in SODIUM CHLORIDE 0.9% 500 ML IV ONE (07:30)
[2021-01-15] MEDS ORDERED: MAGNESIUM SULFATE PMX 4GM/100M 100 ML IVPB ONE (07:30)
[2021-01-15] MEDS: PANTOPRAZOLE 40 MG IV IVPush SCH ×2 (07:36→19:32)
[2021-01-15] MEDS: MULTIVITAMINS/MINERALS TABLET PO SCH (09:20)
[2021-01-15] MEDS: HEPARIN 5,000 UNITS/ML, 1ML SQ SCH ×3 (09:20→19:23)
[2021-01-15] MEDS: TAMSULOSIN 0.4 MG CAP.ER.24H PO SCH (09:20)
[2021-01-15] MEDS: THIAMINE 200 MG in SODIUM CHLORIDE 0.9% 50 ML IV SCH (09:21)
[2021-01-15] MEDS: CEFTRIAXONE PMX 2GM/50ML 50 ML IVPB SCH (10:13)
[2021-01-15] MEDS: morphine SULFATE 10 MG/ML, 1ML IVPush PRN (21:27)
[2021-01-16] MEDS ORDERED: PHENOBARBITAL 20 MG/5 ML ORAL SOL PO SCH ×2 (00:30→12:30)
[2021-01-16 04:30] LABS: BASOPHILS % (AUTO) 0 % (0-1); EOSINOPHILS % (AUTO) 0 % (1-7); LYMPHOCYTES % (AUTO) 30 % (22-44); MEAN CORPUSCULAR HEMOGLOBIN 25.1 pg (27.5-34.5); MEAN CORPUSCULAR HGB CONC 32.6 g/dL (33.2-36.2); MEAN PLATELET VOLUME 8.6 fL (7.4-10.4); MONOCYTES % (AUTO) 8 % (2-9); NEUTROPHILS % (AUTO) 62 % (42-75); PLATELET COUNT 58 x10^3/uL (130-400); RED BLOOD COUNT 3.31 x10^6/uL (4.38-5.82); RED CELL DISTRIBUTION WIDTH 28.8 % (9.4-14.8)
[2021-01-16 04:32] LABS: MD SCAN
[2021-01-16 04:44] LABS: ANION GAP 8 mmol/L (5-15); CALCIUM 7.4 mg/dL (8.5-10.1); CHLORIDE 98 mmol/L (98-107); CREATININE 0.43 mg/dL (0.7-1.3)
[2021-01-16] MEDS: METRONIDAZOLE PMX 500MG/100ML 100 ML IV SCH ×3 (06:47→23:12)
[2021-01-16] MEDS: PANTOPRAZOLE 40 MG IV IVPush SCH ×2 (07:14→20:55)
[2021-01-16] MEDS ORDERED: SODIUM PHOSPHATE 10 MMOL in SODIUM CHLORIDE 0.9% 500 ML IV ONE (07:30)
[2021-01-16] MEDS ORDERED: MAGNESIUM SULFATE PMX 2GM/50ML 50 ML IV ONE (07:30)
[2021-01-16] MEDS: THIAMINE 200 MG in SODIUM CHLORIDE 0.9% 50 ML IV SCH (08:36)
[2021-01-16] MEDS: TAMSULOSIN 0.4 MG CAP.ER.24H PO SCH (08:36)
[2021-01-16] MEDS: MULTIVITAMINS/MINERALS TABLET PO SCH (08:36)
[2021-01-16] MEDS: FLUTICASONE/VILANTEROL 100-25MCG/INH INH SCH (09:10)
[2021-01-16] MEDS: ALBUTEROL HFA 90 MCG/SPRAY INH SCH ×3 (09:10→21:00)
[2021-01-16] MEDS: CEFTRIAXONE PMX 2GM/50ML 50 ML IVPB SCH (09:29)
[2021-01-16] MEDS: LOPERAMIDE 2 MG CAPSULE PO PRN (12:21)
[2021-01-16] MEDS: morphine SULFATE 10 MG/ML, 1ML IVPush PRN (21:11)
[2021-01-17] MEDS: ALBUTEROL HFA 90 MCG/SPRAY INH SCH ×4 (03:34→20:13)
[2021-01-17 04:20] LABS: ANION GAP 8 mmol/L (5-15); CALCIUM 7.3 mg/dL (8.5-10.1); CHLORIDE 102 mmol/L (98-107); CREATININE 0.37 mg/dL (0.7-1.3)
[2021-01-17 04:46] LABS: MEAN CORPUSCULAR HEMOGLOBIN 25.4 pg (27.5-34.5); MEAN CORPUSCULAR HGB CONC 32.9 g/dL (33.2-36.2); MEAN PLATELET VOLUME 8.3 fL (7.4-10.4); PLATELET COUNT 71 x10^3/uL (130-400); RED BLOOD COUNT 3.06 x10^6/uL (4.38-5.82); RED CELL DISTRIBUTION WIDTH 29.1 % (9.4-14.8)
[2021-01-17 05:46] LABS: MD YES
[2021-01-17 05:48] LABS: METAMYELOCYTES# (MANUAL) 0.09 x10^3/uL (0-0); METAMYELOCYTES% (MANUAL) 2 % (0-1)
[2021-01-17 05:49] LABS: BAND#(MANUAL) 0.56 x10^3/uL; BANDS%(MANUAL) 12 % (0-7); LYMPH#(MANUAL) 0.94 x10^3/uL (1-3.4); LYMPHS% (MANUAL) 20 % (22-44); MONOS#(MANUAL) 0.75 x10^3/uL (0.3-2.7); MONOS% (MANUAL) 16 % (2-9); SEG#(MANUAL) 2.35 x10^3/uL (1.8-6.8); SEGS% (MANUAL) 50 % (42-75)
[2021-01-17 05:50] LABS: ANISOCYTOSIS 1+; HYPOCHROMIA 1+; MICROCYTOSIS 1+; OVALOCYTES 1+; TEAR DROPS 1+
[2021-01-17 05:51] LABS: <PLATELET ESTIMATE> DECREASED; <PLT MORPHOLOGY> NORMAL PLT MORPH; PMNS WITH VACUOLES 1+; TOXIC GRAN 1+
[2021-01-17] MEDS: METRONIDAZOLE PMX 500MG/100ML 100 ML IV SCH ×3 (06:28→22:37)
[2021-01-17] MEDS: PANTOPRAZOLE 40 MG IV IVPush SCH ×2 (08:31→20:23)
[2021-01-17] MEDS: MULTIVITAMINS/MINERALS TABLET PO SCH (08:31)
[2021-01-17] MEDS: LOPERAMIDE 2 MG CAPSULE PO PRN ×2 (08:31→13:53)
[2021-01-17] MEDS: TAMSULOSIN 0.4 MG CAP.ER.24H PO SCH (08:31)
[2021-01-17] MEDS: FLUTICASONE/VILANTEROL 100-25MCG/INH INH SCH (08:32)
[2021-01-17] MEDS: THIAMINE 200 MG in SODIUM CHLORIDE 0.9% 50 ML IV SCH (08:32)
[2021-01-17] MEDS ORDERED: MAGNESIUM SULFATE PMX 4GM/100M 100 ML IVPB ONE (09:30)
[2021-01-17] MEDS ORDERED: SODIUM PHOSPHATE 10 MMOL in SODIUM CHLORIDE 0.9% 500 ML IV ONE (09:30)
[2021-01-17] MEDS: CEFTRIAXONE PMX 2GM/50ML 50 ML IVPB SCH (09:50)
[2021-01-17 10:54] VITALS: BP 95/68
[2021-01-17 13:15] VITALS: BP 104/69
[2021-01-17 19:43] VITALS: BP 107/75
[2021-01-17] MEDS: morphine SULFATE 10 MG/ML, 1ML IVPush PRN (20:28)
[2021-01-17] MEDS: MELATONIN 5 MG TABLET PO PRN (20:29)
[2021-01-18] MEDS ORDERED: PHENOBARBITAL 20 MG/5 ML ORAL SOL PO SCH ×2 (00:30→12:30)
[2021-01-18 01:57] VITALS: BP 98/62
[2021-01-18] MEDS: ALBUTEROL HFA 90 MCG/SPRAY INH SCH ×4 (03:40→19:30)
[2021-01-18 04:50] LABS: MEAN CORPUSCULAR HEMOGLOBIN 25.3 pg (27.5-34.5); MEAN CORPUSCULAR HGB CONC 32.8 g/dL (33.2-36.2); MEAN PLATELET VOLUME 8.2 fL (7.4-10.4); PLATELET COUNT 100 x10^3/uL (130-400); RED BLOOD COUNT 2.85 x10^6/uL (4.38-5.82); RED CELL DISTRIBUTION WIDTH 29.6 % (9.4-14.8)
[2021-01-18 05:00] LABS: CALCIUM 7.5 mg/dL (8.5-10.1); CHLORIDE 100 mmol/L (98-107)
[2021-01-18 05:03] LABS: ANION GAP 7 mmol/L (5-15); CREATININE 0.31 mg/dL (0.7-1.3)
[2021-01-18] MEDS ORDERED: POTASSIUM CHLORIDE 20 MEQ TAB.ER.PRT PO ONE (05:30)
[2021-01-18 05:46] LABS: MD YES
[2021-01-18 05:49] LABS: BAND#(MANUAL) 0.38 x10^3/uL; BANDS%(MANUAL) 9 % (0-7); EOS#(MANUAL) 0.08 x10^3/uL (0.0-0.4); EOS% (MANUAL) 2 % (1-7); LYMPH#(MANUAL) 0.67 x10^3/uL (1-3.4); LYMPHS% (MANUAL) 16 % (22-44); MONOS#(MANUAL) 0.88 x10^3/uL (0.3-2.7); MONOS% (MANUAL) 21 % (2-9); SEG#(MANUAL) 2.18 x10^3/uL (1.8-6.8); SEGS% (MANUAL) 52 % (42-75)
[2021-01-18 05:50] LABS: ANISOCYTOSIS 1+; HYPOCHROMIA 1+; MICROCYTOSIS 1+; OVALOCYTES 1+; POLYCHROMASIA 1+; TEAR DROPS 1+
[2021-01-18 05:52] LABS: <PLATELET ESTIMATE> DECREASED; <PLT MORPHOLOGY> NORMAL PLT MORPH
[2021-01-18 06:37] VITALS: BP 96/60
[2021-01-18] MEDS: METRONIDAZOLE PMX 500MG/100ML 100 ML IV SCH ×3 (06:39→22:53)
[2021-01-18] MEDS ORDERED: MAGNESIUM SULFATE PMX 4GM/100M 100 ML IVPB ONE (07:00)
[2021-01-18] MEDS: TAMSULOSIN 0.4 MG CAP.ER.24H PO SCH (07:56)
[2021-01-18] MEDS: PANTOPRAZOLE 40 MG IV IVPush SCH (07:56)
[2021-01-18] MEDS: MULTIVITAMINS/MINERALS TABLET PO SCH (07:56)
[2021-01-18] MEDS: morphine SULFATE 10 MG/ML, 1ML IVPush PRN ×3 (08:12→20:02)
[2021-01-18] MEDS: FLUTICASONE/VILANTEROL 100-25MCG/INH INH SCH (09:00)
[2021-01-18] MEDS: THIAMINE 200 MG in SODIUM CHLORIDE 0.9% 50 ML IV SCH (09:31)
[2021-01-18] MEDS: ONDANSETRON 2MG/ML, 2ML IVPush PRN ×3 (10:41→20:02)
[2021-01-18] MEDS: CEFTRIAXONE PMX 2GM/50ML 50 ML IVPB SCH (10:42)
[2021-01-18] MEDS ORDERED: PROMETHAZINE 25 MG/ML, 1ML ONE (12:38)
[2021-01-18 12:39] VITALS: BP 101/68
[2021-01-18] MEDS: PROMETHAZINE 25 MG/ML, 1ML IM PRN ×2 (12:40→18:20)
[2021-01-18 19:13] VITALS: BP 101/69
[2021-01-18] MEDS: PANTOPRAZOLE 40MG TABLET PO SCH (19:31)
[2021-01-18 20:31] LABS: OCCULT BLOOD POSITIVE (NEGATIVE)
[2021-01-19] VITALS (9 sets, daily range): BP systolic 91–109; BP diastolic 44–73
[2021-01-19] MEDS ORDERED: PHENOBARBITAL 20 MG/5 ML ORAL SOL PO SCH ×2 (00:30→12:30)
[2021-01-19] MEDS: ALBUTEROL HFA 90 MCG/SPRAY INH SCH ×4 (03:00→20:10)
[2021-01-19 05:03] LABS: MEAN CORPUSCULAR HEMOGLOBIN 25.3 pg (27.5-34.5); MEAN CORPUSCULAR HGB CONC 32.7 g/dL (33.2-36.2); MEAN PLATELET VOLUME 6.9 fL (7.4-10.4); PLATELET COUNT 118 x10^3/uL (130-400); RED BLOOD COUNT 2.69 x10^6/uL (4.38-5.82); RED CELL DISTRIBUTION WIDTH 30.1 % (9.4-14.8)
[2021-01-19 05:10] LABS: ANION GAP 7 mmol/L (5-15); CALCIUM 7.6 mg/dL (8.5-10.1); CHLORIDE 100 mmol/L (98-107)
[2021-01-19 05:12] LABS: CREATININE 0.37 mg/dL (0.7-1.3)
[2021-01-19 05:49] LABS: MD YES
[2021-01-19 05:51] LABS: BAND#(MANUAL) 0.11 x10^3/uL; BANDS%(MANUAL) 2 % (0-7); BASOS#(MANUAL) 0.06 x10^3/uL (0-0.1); BASOS% (MANUAL) 1 % (0-1); LYMPH#(MANUAL) 0.67 x10^3/uL (1-3.4); LYMPHS% (MANUAL) 12 % (22-44); METAMYELOCYTES# (MANUAL) 0.06 x10^3/uL (0-0); METAMYELOCYTES% (MANUAL) 1 % (0-1); MONOS#(MANUAL) 0.67 x10^3/uL (0.3-2.7); MONOS% (MANUAL) 12 % (2-9); SEG#(MANUAL) 4.03 x10^3/uL (1.8-6.8); SEGS% (MANUAL) 72 % (42-75)
[2021-01-19 05:52] LABS: <PLATELET ESTIMATE> DECREASED; <PLT MORPHOLOGY> NORMAL PLT MORPH; ANISOCYTOSIS 1+; HYPOCHROMIA 1+; MICROCYTOSIS 1+; OVALOCYTES 1+; POLYCHROMASIA 1+; TEAR DROPS 1+; TOXIC GRAN 1+
[2021-01-19] MEDS: METRONIDAZOLE PMX 500MG/100ML 100 ML IV SCH (06:39)
[2021-01-19] MEDS ORDERED: MAGNESIUM SULFATE 6 GM in SODIUM CHLORIDE 0.9% 150 ML IV ONE (07:00)
[2021-01-19] MEDS: FLUTICASONE/VILANTEROL 100-25MCG/INH INH SCH ×2 (07:30→14:27)
[2021-01-19] MEDS: TAMSULOSIN 0.4 MG CAP.ER.24H PO SCH (07:58)
[2021-01-19] MEDS: PANTOPRAZOLE 40MG TABLET PO SCH ×2 (07:58→19:38)
[2021-01-19] MEDS: POTASSIUM CHLORIDE 20 MEQ TAB.ER.PRT PO SCH ×2 (07:58→16:18)
[2021-01-19] MEDS: MULTIVITAMINS/MINERALS TABLET PO SCH (07:58)
[2021-01-19] MEDS: THIAMINE 200 MG in SODIUM CHLORIDE 0.9% 50 ML IV SCH (07:58)
[2021-01-19] MEDS ORDERED: MORPHINE SULFATE 4 MG/ML, 1ML ONE ×2 (08:53→12:58)
[2021-01-19] MEDS: morphine SULFATE 10 MG/ML, 1ML IVPush PRN ×3 (08:55→19:39)
[2021-01-19] MEDS: CEFTRIAXONE PMX 2GM/50ML 50 ML IVPB SCH (10:11)
[2021-01-19] MEDS: metroNIDAZOLE 500 MG TABLET PO SCH ×2 (14:16→20:32)
[2021-01-19] MEDS: MELATONIN 5 MG TABLET PO PRN (19:38)
[2021-01-20 00:26] VITALS: BP 93/65
[2021-01-20] MEDS: ALBUTEROL HFA 90 MCG/SPRAY INH SCH ×4 (02:29→21:00)
[2021-01-20] MEDS: metroNIDAZOLE 500 MG TABLET PO SCH ×3 (04:52→20:31)
[2021-01-20 07:03] VITALS: BP 107/62
[2021-01-20] MEDS: FLUTICASONE/VILANTEROL 100-25MCG/INH INH SCH (08:06)
[2021-01-20] MEDS: PANTOPRAZOLE 40MG TABLET PO SCH ×2 (08:14→19:02)
[2021-01-20] MEDS: MULTIVITAMINS/MINERALS TABLET PO SCH (08:14)
[2021-01-20] MEDS: morphine SULFATE 10 MG/ML, 1ML IVPush PRN ×4 (08:14→20:35)
[2021-01-20] MEDS: TAMSULOSIN 0.4 MG CAP.ER.24H PO SCH (08:14)
[2021-01-20] MEDS: CEFTRIAXONE PMX 2GM/50ML 50 ML IVPB SCH (10:34)
[2021-01-20] MEDS: THIAMINE 200 MG in SODIUM CHLORIDE 0.9% 50 ML IV SCH (11:38)
[2021-01-20 13:24] VITALS: BP 106/70
[2021-01-20] MEDS: ONDANSETRON 2MG/ML, 2ML IVPush PRN (14:05)
[2021-01-20] MEDS: MELATONIN 5 MG TABLET PO PRN ×2 (19:03→20:31)
[2021-01-20 19:42] VITALS: BP 103/64
[2021-01-21 00:13] VITALS: BP 102/63
[2021-01-21] MEDS: morphine SULFATE 10 MG/ML, 1ML IVPush PRN ×5 (03:23→20:03)
[2021-01-21] MEDS: metroNIDAZOLE 500 MG TABLET PO SCH ×2 (05:00→12:49)
[2021-01-21 05:53] LABS: MEAN CORPUSCULAR HEMOGLOBIN 26.3 pg (27.5-34.5); MEAN CORPUSCULAR HGB CONC 32.4 g/dL (33.2-36.2); MEAN PLATELET VOLUME 6.7 fL (7.4-10.4); PLATELET COUNT 180 x10^3/uL (130-400); RED BLOOD COUNT 3.55 x10^6/uL (4.38-5.82); RED CELL DISTRIBUTION WIDTH 28.5 % (9.4-14.8)
[2021-01-21 06:02] LABS: ANION GAP 5 mmol/L (5-15); CALCIUM 7.4 mg/dL (8.5-10.1); CHLORIDE 100 mmol/L (98-107)
[2021-01-21 06:05] LABS: CREATININE 0.33 mg/dL (0.7-1.3)
[2021-01-21 06:22] LABS: MD YES
[2021-01-21 06:24] LABS: BANDS%(MANUAL) 5 % (0-7); METAMYELOCYTES# (MANUAL) 0.06 x10^3/uL (0-0); METAMYELOCYTES% (MANUAL) 1 % (0-1); MYELOCYTES# (MANUAL) 0.06 x10^3/uL (0-0); MYELOCYTES% (MANUAL) 1 % (0-0); SEG#(MANUAL) 4.44 x10^3/uL (1.8-6.8); SEGS% (MANUAL) 74 % (42-75)
[2021-01-21 06:25] LABS: LYMPH#(MANUAL) 0.66 x10^3/uL (1-3.4); LYMPHS% (MANUAL) 11 % (22-44); MONOS#(MANUAL) 0.48 x10^3/uL (0.3-2.7); MONOS% (MANUAL) 8 % (2-9)
[2021-01-21 06:26] LABS: <PLATELET ESTIMATE> ADEQUATE; <PLT MORPHOLOGY> NORMAL PLT MORPH; ANISOCYTOSIS 2+; HYPOCHROMIA 1+; OVALOCYTES 1+; TEAR DROPS 1+
[2021-01-21 06:27] LABS: POLYCHROMASIA 1+
[2021-01-21] MEDS: FLUTICASONE/VILANTEROL 100-25MCG/INH INH SCH (07:20)
[2021-01-21] MEDS: ALBUTEROL HFA 90 MCG/SPRAY INH SCH ×4 (07:20→20:23)
[2021-01-21] MEDS: PANTOPRAZOLE 40MG TABLET PO SCH ×2 (07:39→19:57)
[2021-01-21] MEDS: MULTIVITAMINS/MINERALS TABLET PO SCH (07:39)
[2021-01-21] MEDS: TAMSULOSIN 0.4 MG CAP.ER.24H PO SCH (07:39)
[2021-01-21] MEDS: LOPERAMIDE 2 MG CAPSULE PO PRN ×3 (07:39→18:01)
[2021-01-21] MEDS: THIAMINE 200 MG in SODIUM CHLORIDE 0.9% 50 ML IV SCH (07:39)
[2021-01-21 08:38] VITALS: BP 103/68
[2021-01-21] MEDS: CEFTRIAXONE PMX 2GM/50ML 50 ML IVPB SCH (10:46)
[2021-01-21 12:29] VITALS: BP 100/65
[2021-01-21] MEDS: ONDANSETRON 2MG/ML, 2ML IVPush PRN ×2 (13:38→18:02)
[2021-01-21] MEDS ORDERED: OXYcodone/APAP 7.5/325MG TABLET PO PRN (16:00)
[2021-01-21] MEDS: LORazepam 2 MG/ML, 1ML IVPush PRN (17:02)
[2021-01-21 19:28] VITALS: BP 108/70
[2021-01-21] MEDS: MELATONIN 5 MG TABLET PO PRN (21:47)
[2021-01-22 00:29] VITALS: BP 133/84
[2021-01-22] MEDS: morphine SULFATE 10 MG/ML, 1ML IVPush PRN ×4 (02:26→19:34)
[2021-01-22] MEDS: ALBUTEROL HFA 90 MCG/SPRAY INH SCH ×4 (03:00→20:02)
[2021-01-22] MEDS: LORazepam 2 MG/ML, 1ML IVPush PRN ×2 (05:24→12:01)
[2021-01-22 07:28] VITALS: BP 97/65
[2021-01-22] MEDS: FLUTICASONE/VILANTEROL 100-25MCG/INH INH SCH (07:38)
[2021-01-22] MEDS: PANTOPRAZOLE 40MG TABLET PO SCH ×2 (09:19→19:32)
[2021-01-22] MEDS: MULTIVITAMINS/MINERALS TABLET PO SCH (09:19)
[2021-01-22] MEDS: THIAMINE 200 MG in SODIUM CHLORIDE 0.9% 50 ML IV SCH (09:19)
[2021-01-22] MEDS: TAMSULOSIN 0.4 MG CAP.ER.24H PO SCH (09:19)
[2021-01-22 12:12] VITALS: BP 111/78
[2021-01-22 16:04] LABS: MEAN CORPUSCULAR HEMOGLOBIN 26.5 pg (27.5-34.5); MEAN PLATELET VOLUME 6.4 fL (7.4-10.4); PLATELET COUNT 224 x10^3/uL (130-400); RED CELL DISTRIBUTION WIDTH 28.4 % (9.4-14.8)
[2021-01-22 16:17] LABS: ALBUMIN 2.1 g/dL (3.4-5.0); ANION GAP 2 mmol/L (5-15); CALCIUM 7.2 mg/dL (8.5-10.1); CHLORIDE 98 mmol/L (98-107)
[2021-01-22 16:20] LABS: ALANINE AMINOTRANSFERASE 24 U/L (12-78); ALKALINE PHOSPHATASE 60 U/L (45-117); BILIRUBIN,TOTAL 0.1 mg/dL (0.2-1.0); CREATININE 0.31 mg/dL (0.7-1.3); TOTAL PROTEIN 5.4 g/dL (6.4-8.2)
[2021-01-22 16:32] LABS: MD YES
[2021-01-22 16:36] LABS: BAND#(MANUAL) 0.27 x10^3/uL; BANDS%(MANUAL) 5 % (0-7); BASOS#(MANUAL) 0.05 x10^3/uL (0-0.1); BASOS% (MANUAL) 1 % (0-1); LYMPH#(MANUAL) 0.92 x10^3/uL (1-3.4); LYMPHS% (MANUAL) 17 % (22-44); METAMYELOCYTES# (MANUAL) 0.05 x10^3/uL (0-0); METAMYELOCYTES% (MANUAL) 1 % (0-1); MONOS#(MANUAL) 0.27 x10^3/uL (0.3-2.7); MONOS% (MANUAL) 5 % (2-9); MYELOCYTES# (MANUAL) 0.11 x10^3/uL (0-0); MYELOCYTES% (MANUAL) 2 % (0-0); REACTIVE LYMPHS # (MANUAL) 0.05 x10^3/uL (0-0); REACTIVE LYMPHS % (MANUAL) 1 % (0-0); SEG#(MANUAL) 3.67 x10^3/uL (1.8-6.8); SEGS% (MANUAL) 68 % (42-75)
[2021-01-22 16:37] LABS: ANISOCYTOSIS 2+
[2021-01-22 16:38] LABS: HYPOCHROMIA 1+; TEAR DROPS 1+
[2021-01-22 16:39] LABS: <PLATELET ESTIMATE> ADEQUATE; <PLT MORPHOLOGY> NORMAL PLT MORPH; MICROCYTOSIS 1+; OVALOCYTES 2+; SCHISTOCYTES 1+
[2021-01-22 18:27] VITALS: BP 97/66
[2021-01-23 01:05] VITALS: BP 110/69
[2021-01-23] MEDS: morphine SULFATE 10 MG/ML, 1ML IVPush PRN ×5 (01:37→21:55)
[2021-01-23] MEDS: ALBUTEROL HFA 90 MCG/SPRAY INH SCH ×4 (03:00→20:19)
[2021-01-23] MEDS: FLUTICASONE/VILANTEROL 100-25MCG/INH INH SCH (07:10)
[2021-01-23] MEDS: PANTOPRAZOLE 40MG TABLET PO SCH ×3 (07:40→19:50)
[2021-01-23 08:17] VITALS: BP 115/71
[2021-01-23] MEDS: MULTIVITAMINS/MINERALS TABLET PO SCH (09:23)
[2021-01-23] MEDS: LORazepam 2 MG/ML, 1ML IVPush PRN ×2 (09:23→16:00)
[2021-01-23] MEDS: TAMSULOSIN 0.4 MG CAP.ER.24H PO SCH (09:23)
[2021-01-23] MEDS: THIAMINE 200 MG in SODIUM CHLORIDE 0.9% 50 ML IV SCH (09:58)
[2021-01-23] MEDS: ONDANSETRON 2MG/ML, 2ML IVPush PRN (11:55)
[2021-01-23 15:03] VITALS: BP 107/70
[2021-01-23] MEDS ORDERED: SODIUM CHLORIDE NASAL SPRAY 45ML BOTTLE NAS PRN (19:00)
[2021-01-23 19:05] VITALS: BP 93/62
[2021-01-24 00:04] VITALS: BP 110/72
[2021-01-24] MEDS: ALBUTEROL HFA 90 MCG/SPRAY INH SCH ×5 (03:35→19:42)
[2021-01-24 05:54] LABS: MEAN CORPUSCULAR HEMOGLOBIN 26.6 pg (27.5-34.5); MEAN CORPUSCULAR HGB CONC 33.1 g/dL (33.2-36.2); MEAN PLATELET VOLUME 6.6 fL (7.4-10.4); PLATELET COUNT 283 x10^3/uL (130-400); RED CELL DISTRIBUTION WIDTH 28.4 % (9.4-14.8)
[2021-01-24 05:59] LABS: ANION GAP 4 mmol/L (5-15); CALCIUM 7.9 mg/dL (8.5-10.1); CHLORIDE 100 mmol/L (98-107)
[2021-01-24] MEDS: morphine SULFATE 10 MG/ML, 1ML IVPush PRN ×5 (06:00→23:39)
[2021-01-24 06:03] LABS: ALANINE AMINOTRANSFERASE 21 U/L (12-78); ALKALINE PHOSPHATASE 56 U/L (45-117); BILIRUBIN,TOTAL 0.1 mg/dL (0.2-1.0); CREATININE 0.28 mg/dL (0.7-1.3); TOTAL PROTEIN 5.3 g/dL (6.4-8.2)
[2021-01-24 06:22] LABS: MD YES
[2021-01-24 06:24] LABS: BAND#(MANUAL) 0.05 x10^3/uL; BANDS%(MANUAL) 1 % (0-7); BASOS% (MANUAL) 2 % (0-1); LYMPHS% (MANUAL) 14 % (22-44); MONOS#(MANUAL) 0.35 x10^3/uL (0.3-2.7); MONOS% (MANUAL) 7 % (2-9); MYELOCYTES# (MANUAL) 0.05 x10^3/uL (0-0); MYELOCYTES% (MANUAL) 1 % (0-0); SEG#(MANUAL) 3.75 x10^3/uL (1.8-6.8); SEGS% (MANUAL) 75 % (42-75)
[2021-01-24 06:25] LABS: <PLATELET ESTIMATE> ADEQUATE; <PLT MORPHOLOGY> NORMAL PLT MORPH; ANISOCYTOSIS 2+; HYPOCHROMIA 1+; MICROCYTOSIS 1+; OVALOCYTES 1+; TEAR DROPS 1+
[2021-01-24 07:07] VITALS: BP 109/69
[2021-01-24] MEDS: LORazepam 2 MG/ML, 1ML IVPush PRN ×2 (08:22→17:28)
[2021-01-24] MEDS: MULTIVITAMINS/MINERALS TABLET PO SCH (08:22)
[2021-01-24] MEDS: PANTOPRAZOLE 40MG TABLET PO SCH ×2 (08:23→19:17)
[2021-01-24] MEDS: TAMSULOSIN 0.4 MG CAP.ER.24H PO SCH (08:23)
[2021-01-24] MEDS: FLUTICASONE/VILANTEROL 100-25MCG/INH INH SCH (08:32)
[2021-01-24] MEDS: THIAMINE 200 MG in SODIUM CHLORIDE 0.9% 50 ML IV SCH (08:52)
[2021-01-24 13:15] VITALS: BP 107/68
[2021-01-24 19:08] VITALS: BP 95/60
[2021-01-25 01:20] VITALS: BP 115/74
[2021-01-25] MEDS: morphine SULFATE 10 MG/ML, 1ML IVPush PRN ×5 (02:46→20:09)
[2021-01-25] MEDS: ALBUTEROL HFA 90 MCG/SPRAY INH SCH ×4 (06:40→19:00)
[2021-01-25] MEDS: FLUTICASONE/VILANTEROL 100-25MCG/INH INH SCH (06:40)
[2021-01-25 06:44] VITALS: BP 106/70
[2021-01-25] MEDS ORDERED: FUROSEMIDE 20 MG/2 ML IV ONE (07:30)
[2021-01-25] MEDS: PANTOPRAZOLE 40MG TABLET PO SCH ×2 (08:19→20:09)
[2021-01-25] MEDS: MULTIVITAMINS/MINERALS TABLET PO SCH (08:19)
[2021-01-25] MEDS: TAMSULOSIN 0.4 MG CAP.ER.24H PO SCH (08:19)
[2021-01-25] MEDS: LORazepam 2 MG/ML, 1ML IVPush PRN ×2 (08:19→14:11)
[2021-01-25] MEDS: THIAMINE 200 MG in SODIUM CHLORIDE 0.9% 50 ML IV SCH (11:17)
[2021-01-25] MEDS: SODIUM CHLORIDE NASAL SPRAY 45ML BOTTLE NAS SCH ×3 (11:32→20:09)
[2021-01-25 12:01] VITALS: BP 100/47
[2021-01-25 18:59] VITALS: BP 107/73
[2021-01-25] MEDS: MELATONIN 5 MG TABLET PO PRN (20:09)
[2021-01-25] MEDS: HYDROcodone/APAP 10/325 MG TABLET PO PRN (21:11)
[2021-01-26] MEDS: morphine SULFATE 10 MG/ML, 1ML IVPush PRN ×6 (00:14→23:29)
[2021-01-26 01:10] VITALS: BP 111/72
[2021-01-26 05:41] LABS: CHLORIDE 100 mmol/L (98-107)
[2021-01-26 05:52] LABS: ALANINE AMINOTRANSFERASE 28 U/L (12-78); ALBUMIN 2.3 g/dL (3.4-5.0); ALKALINE PHOSPHATASE 61 U/L (45-117); ANION GAP 4 mmol/L (5-15); BILIRUBIN,TOTAL 0.2 mg/dL (0.2-1.0); CALCIUM 8.2 mg/dL (8.5-10.1); CREATININE 0.37 mg/dL (0.7-1.3); TOTAL PROTEIN 6.1 g/dL (6.4-8.2)
[2021-01-26] MEDS: HYDROcodone/APAP 10/325 MG TABLET PO PRN ×3 (06:44→16:31)
[2021-01-26] MEDS: ALBUTEROL HFA 90 MCG/SPRAY INH SCH ×4 (06:45→18:46)
[2021-01-26 06:55] LABS: MEAN CORPUSCULAR HEMOGLOBIN 25.8 pg (27.5-34.5); MEAN CORPUSCULAR HGB CONC 32.3 g/dL (33.2-36.2); MEAN PLATELET VOLUME 6.6 fL (7.4-10.4); PLATELET COUNT 378 x10^3/uL (130-400); RED BLOOD COUNT 3.41 x10^6/uL (4.38-5.82)
[2021-01-26 07:25] LABS: MD YES
[2021-01-26 07:35] LABS: <PLATELET ESTIMATE> ADEQUATE; <PLT MORPHOLOGY> NORMAL PLT MORPH; ANISOCYTOSIS 2+; BAND#(MANUAL) 0.11 x10^3/uL; BANDS%(MANUAL) 3 % (0-7); BASOS#(MANUAL) 0.11 x10^3/uL (0-0.1); BASOS% (MANUAL) 3 % (0-1); EOS#(MANUAL) 0.04 x10^3/uL (0.0-0.4); EOS% (MANUAL) 1 % (1-7); HYPOCHROMIA 1+; LYMPH#(MANUAL) 0.68 x10^3/uL (1-3.4); LYMPHS% (MANUAL) 18 % (22-44); METAMYELOCYTES# (MANUAL) 0.08 x10^3/uL (0-0); METAMYELOCYTES% (MANUAL) 2 % (0-1); MICROCYTOSIS 1+; MONOS#(MANUAL) 0.46 x10^3/uL (0.3-2.7); MONOS% (MANUAL) 12 % (2-9); MYELOCYTES# (MANUAL) 0.04 x10^3/uL (0-0); MYELOCYTES% (MANUAL) 1 % (0-0); OVALOCYTES 1+; SEG#(MANUAL) 2.28 x10^3/uL (1.8-6.8); SEGS% (MANUAL) 60 % (42-75); TEAR DROPS 1+
[2021-01-26 07:59] VITALS: BP 107/81
[2021-01-26] MEDS: MULTIVITAMINS/MINERALS TABLET PO SCH (08:14)
[2021-01-26] MEDS: PANTOPRAZOLE 40MG TABLET PO SCH ×2 (08:14→19:27)
[2021-01-26] MEDS: TAMSULOSIN 0.4 MG CAP.ER.24H PO SCH (08:14)
[2021-01-26] MEDS: SODIUM CHLORIDE NASAL SPRAY 45ML BOTTLE NAS SCH ×3 (09:00→21:00)
[2021-01-26] MEDS: FLUTICASONE/VILANTEROL 100-25MCG/INH INH SCH (10:30)
[2021-01-26] MEDS: THIAMINE 200 MG in SODIUM CHLORIDE 0.9% 50 ML IV SCH (11:40)
[2021-01-26 13:02] VITALS: BP 124/70
[2021-01-26] MEDS: MELATONIN 5 MG TABLET PO PRN (19:28)
[2021-01-26 20:40] VITALS: BP 99/70
[2021-01-27] MEDS: HYDROcodone/APAP 10/325 MG TABLET PO PRN (00:21)
[2021-01-27] MEDS: ALBUTEROL HFA 90 MCG/SPRAY INH SCH ×4 (06:00→19:20)
[2021-01-27] MEDS: morphine SULFATE 10 MG/ML, 1ML IVPush PRN ×4 (06:09→19:38)
[2021-01-27] MEDS: FLUTICASONE/VILANTEROL 100-25MCG/INH INH SCH (07:39)
[2021-01-27 07:47] LABS: BASOPHILS % (AUTO) 3 % (0-1); EOSINOPHILS % (AUTO) 1 % (1-7); LYMPHOCYTES % (AUTO) 21 % (22-44); MEAN CORPUSCULAR HEMOGLOBIN 26.6 pg (27.5-34.5); MEAN CORPUSCULAR HGB CONC 32.9 g/dL (33.2-36.2); MEAN PLATELET VOLUME 6.4 fL (7.4-10.4); MONOCYTES % (AUTO) 14 % (2-9); NEUTROPHILS % (AUTO) 61 % (42-75); PLATELET COUNT 419 x10^3/uL (130-400); RED BLOOD COUNT 3.16 x10^6/uL (4.38-5.82); RED CELL DISTRIBUTION WIDTH 27.3 % (9.4-14.8)
[2021-01-27 07:57] LABS: ALANINE AMINOTRANSFERASE 27 U/L (12-78); ALBUMIN 2.4 g/dL (3.4-5.0); ANION GAP 5 mmol/L (5-15); CALCIUM 8.6 mg/dL (8.5-10.1); CHLORIDE 102 mmol/L (98-107); CREATININE 0.34 mg/dL (0.7-1.3)
[2021-01-27 08:00] LABS: ALKALINE PHOSPHATASE 58 U/L (45-117); BILIRUBIN,TOTAL 0.2 mg/dL (0.2-1.0)
[2021-01-27 08:07] LABS: MD SCAN
[2021-01-27] MEDS: MULTIVITAMINS/MINERALS TABLET PO SCH (08:18)
[2021-01-27] MEDS: PANTOPRAZOLE 40MG TABLET PO SCH ×2 (08:18→19:37)
[2021-01-27] MEDS: THIAMINE 200 MG in SODIUM CHLORIDE 0.9% 50 ML IV SCH (08:18)
[2021-01-27] MEDS: TAMSULOSIN 0.4 MG CAP.ER.24H PO SCH ×2 (08:18→08:28)
[2021-01-27] MEDS: SODIUM CHLORIDE NASAL SPRAY 45ML BOTTLE NAS SCH ×3 (08:19→19:38)
[2021-01-27 09:08] VITALS: BP 101/76
[2021-01-27 11:56] VITALS: BP 120/80
[2021-01-27] MEDS: DIPHENHYDRAMINE 25 MG CAPSULE PO PRN ×2 (13:46→20:48)
[2021-01-27 18:48] VITALS: BP 93/61
[2021-01-27] MEDS: MELATONIN 5 MG TABLET PO PRN (19:37)
[2021-01-28] MEDS: morphine SULFATE 10 MG/ML, 1ML IVPush PRN ×4 (00:20→21:50)
[2021-01-28] MEDS: LORazepam 2 MG/ML, 1ML IVPush PRN ×2 (00:33→09:42)
[2021-01-28 00:39] VITALS: BP 111/71
[2021-01-28] MEDS: ALBUTEROL HFA 90 MCG/SPRAY INH SCH ×4 (06:00→19:53)
[2021-01-28 07:47] VITALS: BP 132/89
[2021-01-28] MEDS: MULTIVITAMINS/MINERALS TABLET PO SCH (08:55)
[2021-01-28] MEDS: PANTOPRAZOLE 40MG TABLET PO SCH ×2 (08:56→19:04)
[2021-01-28] MEDS: THIAMINE 100MG TABLET PO SCH (08:57)
[2021-01-28] MEDS: TAMSULOSIN 0.4 MG CAP.ER.24H PO SCH (08:57)
[2021-01-28] MEDS: SODIUM CHLORIDE NASAL SPRAY 45ML BOTTLE NAS SCH ×3 (08:58→19:17)
[2021-01-28] MEDS: FLUTICASONE/VILANTEROL 100-25MCG/INH INH SCH (09:00)
[2021-01-28] MEDS: ONDANSETRON 2MG/ML, 2ML IVPush PRN ×2 (13:31→19:13)
[2021-01-28 14:32] VITALS: BP 102/66
[2021-01-28] MEDS: LORazepam 1MG TABLET PO PRN ×2 (16:17→21:01)
[2021-01-28] MEDS: MELATONIN 5 MG TABLET PO PRN (19:13)
[2021-01-28 21:00] VITALS: BP 124/84
[2021-01-28] MEDS: DIPHENHYDRAMINE 25 MG CAPSULE PO PRN (21:49)
[2021-01-29 02:27] VITALS: BP 112/80
[2021-01-29 07:10] VITALS: BP 123/78
[2021-01-29] MEDS: FLUTICASONE/VILANTEROL 100-25MCG/INH INH SCH (07:29)
[2021-01-29] MEDS: ALBUTEROL HFA 90 MCG/SPRAY INH SCH ×5 (07:29→20:13)
[2021-01-29] MEDS: SODIUM CHLORIDE NASAL SPRAY 45ML BOTTLE NAS SCH ×3 (07:39→21:00)
[2021-01-29] MEDS: THIAMINE 100MG TABLET PO SCH (07:39)
[2021-01-29] MEDS: MULTIVITAMINS/MINERALS TABLET PO SCH (07:39)
[2021-01-29] MEDS: PANTOPRAZOLE 40MG TABLET PO SCH ×2 (07:39→20:07)
[2021-01-29] MEDS: TAMSULOSIN 0.4 MG CAP.ER.24H PO SCH (07:40)
[2021-01-29] MEDS: LORazepam 1MG TABLET PO PRN ×3 (08:56→20:07)
[2021-01-29] MEDS: morphine SULFATE 10 MG/ML, 1ML IVPush PRN ×2 (10:44→18:31)
[2021-01-29 12:18] VITALS: BP 95/60
[2021-01-29] MEDS: DIPHENHYDRAMINE 25 MG CAPSULE PO PRN (13:01)
[2021-01-29] MEDS ORDERED: MORPHINE SULFATE 4 MG/ML, 1ML IVPush ONE (15:35)
[2021-01-29] MEDS: ONDANSETRON 2MG/ML, 2ML IVPush PRN (20:07)
[2021-01-29 20:11] VITALS: BP 93/68
[2021-01-29] MEDS: MELATONIN 5 MG TABLET PO PRN (21:43)
[2021-01-30 01:20] VITALS: BP 92/60
[2021-01-30] MEDS: ALBUTEROL HFA 90 MCG/SPRAY INH SCH ×4 (06:00→20:32)
[2021-01-30 06:53] VITALS: BP 146/85
[2021-01-30] MEDS: TAMSULOSIN 0.4 MG CAP.ER.24H PO SCH (08:21)
[2021-01-30] MEDS: PANTOPRAZOLE 40MG TABLET PO SCH ×2 (08:21→19:27)
[2021-01-30] MEDS: THIAMINE 100MG TABLET PO SCH (08:21)
[2021-01-30] MEDS: ONDANSETRON 2MG/ML, 2ML IVPush PRN (08:22)
[2021-01-30] MEDS: MULTIVITAMINS/MINERALS TABLET PO SCH (08:22)
[2021-01-30] MEDS: SODIUM CHLORIDE NASAL SPRAY 45ML BOTTLE NAS SCH ×3 (08:24→21:10)
[2021-01-30] MEDS: FLUTICASONE/VILANTEROL 100-25MCG/INH INH SCH (09:00)
[2021-01-30 13:00] VITALS: BP 100/54
[2021-01-30] MEDS: morphine SULFATE 10 MG/ML, 1ML IVPush PRN ×2 (14:01→19:28)
[2021-01-30] MEDS: LORazepam 1MG TABLET PO PRN ×2 (14:01→21:10)
[2021-01-30 19:39] VITALS: BP 90/52
[2021-01-31 01:19] VITALS: BP 88/64
[2021-01-31] MEDS: morphine SULFATE 10 MG/ML, 1ML IVPush PRN ×2 (05:08→13:25)
[2021-01-31] MEDS: ALBUTEROL HFA 90 MCG/SPRAY INH SCH ×4 (06:00→20:19)
[2021-01-31] MEDS: LORazepam 1MG TABLET PO PRN ×3 (06:17→19:04)
[2021-01-31 06:34] VITALS: BP 98/64
[2021-01-31] MEDS: FLUTICASONE/VILANTEROL 100-25MCG/INH INH SCH (07:59)
[2021-01-31] MEDS: TAMSULOSIN 0.4 MG CAP.ER.24H PO SCH (08:35)
[2021-01-31] MEDS: THIAMINE 100MG TABLET PO SCH (08:36)
[2021-01-31] MEDS: SODIUM CHLORIDE NASAL SPRAY 45ML BOTTLE NAS SCH ×3 (08:36→21:34)
[2021-01-31] MEDS: PANTOPRAZOLE 40MG TABLET PO SCH ×2 (08:36→19:01)
[2021-01-31] MEDS: MULTIVITAMINS/MINERALS TABLET PO SCH (08:36)
[2021-01-31 12:38] LABS: ALANINE AMINOTRANSFERASE 27 U/L (12-78); ANION GAP 9 mmol/L (5-15); CALCIUM 8.9 mg/dL (8.5-10.1); CHLORIDE 98 mmol/L (98-107); CREATININE 0.45 mg/dL (0.7-1.3)
[2021-01-31 12:40] LABS: ALKALINE PHOSPHATASE 90 U/L (45-117); BILIRUBIN,TOTAL 0.3 mg/dL (0.2-1.0); TOTAL PROTEIN 7.4 g/dL (6.4-8.2)
[2021-01-31 12:52] VITALS: BP 113/70
[2021-01-31 13:37] LABS: BASOPHILS % (AUTO) 1 % (0-1); EOSINOPHILS % (AUTO) 1 % (1-7); LYMPHOCYTES % (AUTO) 14 % (22-44); MEAN CORPUSCULAR HEMOGLOBIN 26.6 pg (27.5-34.5); MEAN CORPUSCULAR HGB CONC 32.5 g/dL (33.2-36.2); MEAN PLATELET VOLUME 6.3 fL (7.4-10.4); MONOCYTES % (AUTO) 15 % (2-9); NEUTROPHILS % (AUTO) 69 % (42-75); PLATELET COUNT 420 x10^3/uL (130-400); RED BLOOD COUNT 3.36 x10^6/uL (4.38-5.82); RED CELL DISTRIBUTION WIDTH 26.4 % (9.4-14.8)
[2021-01-31 14:09] LABS: MD MORPH REVIEW ONLY
[2021-01-31 14:11] LABS: ANISOCYTOSIS 2+; HYPOCHROMIA 1+; MICROCYTOSIS 1+; OVALOCYTES 1+
[2021-01-31 14:12] LABS: <PLATELET ESTIMATE> ADEQUATE
[2021-01-31 14:13] LABS: <PLT MORPHOLOGY> NORMAL PLT MORPH
[2021-01-31] MEDS: ONDANSETRON 2MG/ML, 2ML IVPush PRN (17:01)
[2021-01-31 19:17] VITALS: BP 100/67
[2021-01-31] MEDS: MELATONIN 5 MG TABLET PO PRN (21:34)
[2021-02-01 00:14] VITALS: BP 111/77
[2021-02-01] MEDS: LORazepam 1MG TABLET PO PRN ×5 (00:40→22:49)
[2021-02-01] MEDS: morphine SULFATE 10 MG/ML, 1ML IVPush PRN (00:40)
[2021-02-01 00:45] VITALS: BP 122/74
[2021-02-01] MEDS: DIPHENHYDRAMINE 25 MG CAPSULE PO PRN (06:40)
[2021-02-01 06:47] VITALS: BP 119/72
[2021-02-01] MEDS: FLUTICASONE/VILANTEROL 100-25MCG/INH INH SCH (07:16)
[2021-02-01] MEDS: ALBUTEROL HFA 90 MCG/SPRAY INH SCH ×4 (07:16→19:56)
[2021-02-01] MEDS: PANTOPRAZOLE 40MG TABLET PO SCH ×2 (07:53→19:56)
[2021-02-01] MEDS: THIAMINE 100MG TABLET PO SCH (08:11)
[2021-02-01] MEDS: SODIUM CHLORIDE NASAL SPRAY 45ML BOTTLE NAS SCH ×3 (08:11→19:55)
[2021-02-01] MEDS: MULTIVITAMINS/MINERALS TABLET PO SCH (08:11)
[2021-02-01] MEDS: TAMSULOSIN 0.4 MG CAP.ER.24H PO SCH (08:11)
[2021-02-01] MEDS: POLYETHYLENE GLYCOL 17 GM PACKET PO PRN (11:26)
[2021-02-01] MEDS: DOCUSATE 100 MG CAPSULE PO SCH ×2 (11:26→19:56)
[2021-02-01 14:02] VITALS: BP 101/68
[2021-02-01 18:49] VITALS: BP 112/75
[2021-02-01] MEDS: MELATONIN 5 MG TABLET PO PRN (19:56)
[2021-02-02 00:29] VITALS: BP 103/71
[2021-02-02] MEDS: morphine SULFATE 10 MG/ML, 1ML IVPush PRN ×3 (01:53→19:47)
[2021-02-02] MEDS: DIPHENHYDRAMINE 25 MG CAPSULE PO PRN ×2 (04:31→15:54)
[2021-02-02] MEDS: ALBUTEROL HFA 90 MCG/SPRAY INH SCH ×5 (06:08→20:37)
[2021-02-02 07:03] VITALS: BP 115/76
[2021-02-02] MEDS: FLUTICASONE/VILANTEROL 100-25MCG/INH INH SCH (07:37)
[2021-02-02] MEDS: PANTOPRAZOLE 40MG TABLET PO SCH ×2 (07:41→20:37)
[2021-02-02] MEDS: LORazepam 1MG TABLET PO PRN ×3 (07:42→20:36)
[2021-02-02] MEDS: DOCUSATE 100 MG CAPSULE PO SCH ×2 (08:28→20:37)
[2021-02-02] MEDS: THIAMINE 100MG TABLET PO SCH (08:28)
[2021-02-02] MEDS: TAMSULOSIN 0.4 MG CAP.ER.24H PO SCH (08:28)
[2021-02-02] MEDS: MULTIVITAMINS/MINERALS TABLET PO SCH (08:28)
[2021-02-02] MEDS: SODIUM CHLORIDE NASAL SPRAY 45ML BOTTLE NAS SCH ×3 (08:31→20:38)
[2021-02-02 12:17] VITALS: BP 102/70
[2021-02-02 18:54] VITALS: BP 111/77
[2021-02-03 00:18] VITALS: BP 106/71
[2021-02-03] MEDS: ONDANSETRON 2MG/ML, 2ML IVPush PRN (00:56)
[2021-02-03] MEDS: LORazepam 1MG TABLET PO PRN (02:04)
[2021-02-03] MEDS: morphine SULFATE 10 MG/ML, 1ML IVPush PRN (02:04)
[2021-02-03] MEDS: ALBUTEROL HFA 90 MCG/SPRAY INH SCH ×5 (07:10→19:25)
[2021-02-03] MEDS: FLUTICASONE/VILANTEROL 100-25MCG/INH INH SCH ×2 (07:10→07:32)
[2021-02-03 07:12] VITALS: BP 114/74
[2021-02-03] MEDS: PANTOPRAZOLE 40MG TABLET PO SCH ×2 (07:31→19:28)
[2021-02-03] MEDS: THIAMINE 100MG TABLET PO SCH (09:42)
[2021-02-03] MEDS: DOCUSATE 100 MG CAPSULE PO SCH ×2 (09:42→19:29)
[2021-02-03] MEDS: SODIUM CHLORIDE NASAL SPRAY 45ML BOTTLE NAS SCH ×3 (09:43→19:29)
[2021-02-03] MEDS: TAMSULOSIN 0.4 MG CAP.ER.24H PO SCH (09:43)
[2021-02-03] MEDS: MULTIVITAMINS/MINERALS TABLET PO SCH (09:43)
[2021-02-03 12:21] VITALS: BP 120/76
[2021-02-03] MEDS: LORazepam 0.5MG TABLET PO PRN ×2 (13:06→21:19)
[2021-02-03] MEDS: HYDROcodone/APAP 5/325 TABLET PO PRN ×2 (15:00→21:19)
[2021-02-03 19:26] VITALS: BP 117/78
[2021-02-03] MEDS: MELATONIN 5 MG TABLET PO PRN (19:28)
[2021-02-03] MEDS: POLYETHYLENE GLYCOL 17 GM PACKET PO PRN (19:43)
[2021-02-04 00:35] VITALS: BP 101/68
[2021-02-04] MEDS: FLUTICASONE/VILANTEROL 100-25MCG/INH INH SCH (06:30)
[2021-02-04] MEDS: ALBUTEROL HFA 90 MCG/SPRAY INH SCH ×4 (06:30→20:43)
[2021-02-04 06:35] VITALS: BP 99/73
[2021-02-04] MEDS: HYDROcodone/APAP 5/325 TABLET PO PRN ×2 (07:23→17:10)
[2021-02-04] MEDS: PANTOPRAZOLE 40MG TABLET PO SCH ×2 (07:23→20:05)
[2021-02-04] MEDS: THIAMINE 100MG TABLET PO SCH (08:27)
[2021-02-04] MEDS: MULTIVITAMINS/MINERALS TABLET PO SCH (08:27)
[2021-02-04] MEDS: DOCUSATE 100 MG CAPSULE PO SCH ×2 (08:27→20:05)
[2021-02-04] MEDS: TAMSULOSIN 0.4 MG CAP.ER.24H PO SCH (08:27)
[2021-02-04] MEDS: SODIUM CHLORIDE NASAL SPRAY 45ML BOTTLE NAS SCH ×4 (08:28→20:06)
[2021-02-04] MEDS: POLYETHYLENE GLYCOL 17 GM PACKET PO PRN (08:30)
[2021-02-04 13:40] VITALS: BP 102/81
[2021-02-04 19:59] VITALS: BP 115/77
[2021-02-05 01:17] VITALS: BP 112/72
[2021-02-05] MEDS: HYDROcodone/APAP 5/325 TABLET PO PRN ×2 (01:25→11:47)
[2021-02-05] MEDS: ALBUTEROL HFA 90 MCG/SPRAY INH SCH ×3 (06:40→14:15)
[2021-02-05 07:13] VITALS: BP 102/68
[2021-02-05] MEDS: PANTOPRAZOLE 40MG TABLET PO SCH ×2 (07:28→19:56)
[2021-02-05] MEDS: THIAMINE 100MG TABLET PO SCH (08:24)
[2021-02-05] MEDS: POLYETHYLENE GLYCOL 17 GM PACKET PO PRN (08:24)
[2021-02-05] MEDS: TAMSULOSIN 0.4 MG CAP.ER.24H PO SCH (08:24)
[2021-02-05] MEDS: LORazepam 0.5MG TABLET PO PRN ×2 (08:24→21:23)
[2021-02-05] MEDS: MULTIVITAMINS/MINERALS TABLET PO SCH (08:24)
[2021-02-05] MEDS: DOCUSATE 100 MG CAPSULE PO SCH ×2 (08:24→19:56)
[2021-02-05] MEDS: SODIUM CHLORIDE NASAL SPRAY 45ML BOTTLE NAS SCH ×3 (08:28→19:56)
[2021-02-05] MEDS: FLUTICASONE/VILANTEROL 100-25MCG/INH INH SCH (10:10)
[2021-02-05 13:28] VITALS: BP 106/74
[2021-02-05 20:39] VITALS: BP 107/72
[2021-02-06 01:20] VITALS: BP 102/58
[2021-02-06] MEDS: FLUTICASONE/VILANTEROL 100-25MCG/INH INH SCH (07:15)
[2021-02-06] MEDS: ALBUTEROL HFA 90 MCG/SPRAY INH SCH ×4 (07:15→18:50)
[2021-02-06 07:29] VITALS: BP 106/71
[2021-02-06] MEDS: MULTIVITAMINS/MINERALS TABLET PO SCH (07:54)
[2021-02-06] MEDS: DOCUSATE 100 MG CAPSULE PO SCH ×2 (07:54→19:52)
[2021-02-06] MEDS: PANTOPRAZOLE 40MG TABLET PO SCH ×2 (07:54→19:52)
[2021-02-06] MEDS: THIAMINE 100MG TABLET PO SCH (07:54)
[2021-02-06] MEDS: TAMSULOSIN 0.4 MG CAP.ER.24H PO SCH (07:54)
[2021-02-06] MEDS: HYDROcodone/APAP 5/325 TABLET PO PRN ×3 (08:17→21:53)
[2021-02-06] MEDS: SODIUM CHLORIDE NASAL SPRAY 45ML BOTTLE NAS SCH ×3 (09:30→19:52)
[2021-02-06] MEDS: LORazepam 0.5MG TABLET PO PRN ×2 (10:36→22:25)
[2021-02-06 14:50] VITALS: BP 106/69
[2021-02-06 20:34] VITALS: BP 129/76
[2021-02-07 01:51] VITALS: BP 108/71
[2021-02-07] MEDS: ALBUTEROL HFA 90 MCG/SPRAY INH SCH ×4 (07:00→20:15)
[2021-02-07 07:08] VITALS: BP 117/75
[2021-02-07] MEDS: MULTIVITAMINS/MINERALS TABLET PO SCH (07:29)
[2021-02-07] MEDS: THIAMINE 100MG TABLET PO SCH (07:29)
[2021-02-07] MEDS: PANTOPRAZOLE 40MG TABLET PO SCH ×2 (07:29→20:16)
[2021-02-07] MEDS: DOCUSATE 100 MG CAPSULE PO SCH ×2 (07:29→20:16)
[2021-02-07] MEDS: SODIUM CHLORIDE NASAL SPRAY 45ML BOTTLE NAS SCH ×3 (07:30→20:16)
[2021-02-07] MEDS: HYDROcodone/APAP 5/325 TABLET PO PRN ×2 (07:39→16:31)
[2021-02-07] MEDS: TAMSULOSIN 0.4 MG CAP.ER.24H PO SCH (09:00)
[2021-02-07] MEDS: FLUTICASONE/VILANTEROL 100-25MCG/INH INH SCH (10:18)
[2021-02-07] MEDS ORDERED: IBUPROFEN 200 MG TABLET PO PRN (10:30)
[2021-02-07] MEDS: LORazepam 0.5MG TABLET PO PRN (10:42)
[2021-02-07 12:49] VITALS: BP 120/78
[2021-02-07 20:28] VITALS: BP 122/78
[2021-02-08] MEDS: LORazepam 0.5MG TABLET PO PRN (00:13)
[2021-02-08 01:58] VITALS: BP 107/77
[2021-02-08 06:35] VITALS: BP 112/77
[2021-02-08] MEDS: ALBUTEROL HFA 90 MCG/SPRAY INH SCH (07:35)
[2021-02-08] MEDS: FLUTICASONE/VILANTEROL 100-25MCG/INH INH SCH (07:35)
[2021-02-08] MEDS: THIAMINE 100MG TABLET PO SCH (07:45)
[2021-02-08] MEDS: TAMSULOSIN 0.4 MG CAP.ER.24H PO SCH (07:45)
[2021-02-08] MEDS: DOCUSATE 100 MG CAPSULE PO SCH (07:45)
[2021-02-08] MEDS: PANTOPRAZOLE 40MG TABLET PO SCH (07:45)
[2021-02-08] MEDS: MULTIVITAMINS/MINERALS TABLET PO SCH (07:45)
[2021-02-08] MEDS: HYDROcodone/APAP 5/325 TABLET PO PRN (07:47)
[2021-02-08] MEDS ORDERED: hydrOXyzine 50MG TABLET PO PRN (09:30)
[2021-02-08] MEDS: SODIUM CHLORIDE NASAL SPRAY 45ML BOTTLE NAS SCH (09:32)
== END 2021-02-08 10:22 | disposition left against medical advice (07) | DRG 137 ==
LOC: ED 12:10 → EDIP 13:32 → CCU 15:05 → 3N 01-17 10:37
PROVIDERS: ADMIT Hospitalist; ATTEND Hospitalist
PROC: 30233N1 Transfusion of Nonautologous Red Blood Cells into Peripheral Vein, Percutaneous Approach (ICD-10-PCS; principal; 2021-01-19)
PROC: 5A0945A Assistance with Respiratory Ventilation, 24-96 Consecutive Hours, High Flow/Velocity Cannula (ICD-10-PCS; 2021-01-23)
DX: J69.0 Pneumonitis due to inhalation of food and vomit (principal); J96.21 Acute and chronic respiratory failure with hypoxia; I50.33 Acute on chronic diastolic (congestive) heart failure; E86.0 Dehydration; D64.9 Anemia, unspecified; D69.6 Thrombocytopenia, unspecified; E87.1 Hypo-osmolality and hyponatremia; E87.2 Acidosis; Z51.5 Encounter for palliative care; E87.8 Other disorders of electrolyte and fluid balance, not elsewhere classified; Z20.822 Contact with and (suspected) exposure to COVID-19; F10.239 Alcohol dependence with withdrawal, unspecified; F17.210 Nicotine dependence, cigarettes, uncomplicated; G89.29 Other chronic pain; K21.9 Gastro-esophageal reflux disease without esophagitis; I48.91 Unspecified atrial fibrillation; N40.1 Benign prostatic hyperplasia with lower urinary tract symptoms; R33.8 Other retention of urine; J44.9 Chronic obstructive pulmonary disease, unspecified; K59.00 Constipation, unspecified; K76.0 Fatty (change of) liver, not elsewhere classified; K85.90 Acute pancreatitis without necrosis or infection, unspecified; M06.9 Rheumatoid arthritis, unspecified; M19.90 Unspecified osteoarthritis, unspecified site; M48.56XA Collapsed vertebra, not elsewhere classified, lumbar region, initial encounter for fracture; N17.9 Acute kidney failure, unspecified; R62.7 Adult failure to thrive; W01.0XXA Fall on same level from slipping, tripping and stumbling without subsequent striking against object, initial encounter; Y90.9 Presence of alcohol in blood, level not specified; J44.0 Chronic obstructive pulmonary disease with (acute) lower respiratory infection; Z90.49 Acquired absence of other specified parts of digestive tract; Z91.19 Patient's noncompliance with other medical treatment and regimen; Z99.81 Dependence on supplemental oxygen; Z59.0 Homelessness; Z74.01 Bed confinement status; Z79.899 Other long term (current) drug therapy; Z79.891 Long term (current) use of opiate analgesic; Z79.01 Long term (current) use of anticoagulants
CPT/HCPCS: 36415; 70450; 71045; 74018; 74176; 74230; 76700; 80048; 80053; 80320; 81001; 82010; 82272; 82550; 82728; 82800; 83010; 83540; 83550; 83605; 83615; 83690; 83735; 83880; 84100; 84443; 84484; 85018; 85025; 85045; 85049; 85379; 85384; 85610; 85730; 86480; 86850; 86900; 86923; 87040; 87046; 87070; 87077; 87081; 87186; 87205; 87324; 87427; 87493; 93005; 93308; 93321; 93325; 94640; 96374; 96375; 99285; G0378; J0696; J1644; J2405; J2550; J2560; J3370; J3411; J3475; J3480; J7060; C9113; G0480; J1940; J2060; J2270; J7030; J7040; J7050; P9016; Q0163; U0003

== ENCOUNTER 2021-02-09 11:18 | Emergency (ER) | payer MEDICAID ==
[~2021-02-09] VITALS: Ht 165.1 cm; Wt 55.0 kg
--- NOTE | 2021-02-09 11:20 | NUR ---
Pt brought in by [facility] for chief complaint of general weakness and back pain. PT a&o and able to ambulate with walker to room. Per report from [facility] the pt was evaluated at [facility] yesterday for same complaint. PT also admits to ETOH today.
[2021-02-09 11:22] VITALS: BP 116/71
--- NOTE | 2021-02-09 11:37 | NUR ---
pt left ama, education provided
== END 2021-02-09 11:39 | disposition left against medical advice (07) ==
LOC: ED 11:30
DX: R53.1 Weakness (principal); M54.9 Dorsalgia, unspecified; Z53.21 Procedure and treatment not carried out due to patient leaving prior to being seen by health care provider

== ENCOUNTER 2021-02-11 12:42 | Emergency (ER) | payer MEDICAID ==
[~2021-02-11] VITALS: Ht 157.5 cm; Wt 53.0 kg
[2021-02-11 12:49] VITALS: BP 120/87
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
[2021-02-11] MEDS ORDERED: SODIUM CHLORIDE FLUSH 10ML SYR IVF ONE (14:00)
[2021-02-11] MEDS ORDERED: SODIUM CHLORIDE 0.9% 1,000ML IVBOLUS ONE (14:00)
[2021-02-11 14:08] LABS: BASOPHILS % (AUTO) 0 % (0-1); EOSINOPHILS % (AUTO) 0 % (1-7); LYMPHOCYTES % (AUTO) 23 % (22-44); MEAN CORPUSCULAR HEMOGLOBIN 26.6 pg (27.5-34.5); MEAN CORPUSCULAR HGB CONC 33.3 g/dL (33.2-36.2); MEAN PLATELET VOLUME 6.2 fL (7.4-10.4); MONOCYTES % (AUTO) 9 % (2-9); NEUTROPHILS % (AUTO) 68 % (42-75); PLATELET COUNT 392 x10^3/uL (130-400); RED BLOOD COUNT 4.22 x10^6/uL (4.38-5.82); RED CELL DISTRIBUTION WIDTH 25.3 % (9.4-14.8)
[2021-02-11 14:19] LABS: ALANINE AMINOTRANSFERASE 23 U/L (12-78); ALBUMIN 3.9 g/dL (3.4-5.0); ANION GAP 19 mmol/L (5-15); CALCIUM 8.6 mg/dL (8.5-10.1); CHLORIDE 98 mmol/L (98-107); CREATININE 0.45 mg/dL (0.7-1.3)
[2021-02-11 14:22] LABS: ALKALINE PHOSPHATASE 87 U/L (45-117); BILIRUBIN,TOTAL 0.4 mg/dL (0.2-1.0); TOTAL PROTEIN 7.9 g/dL (6.4-8.2)
--- NOTE | 2021-02-11 14:46 | NUR ---
PT LEFT ROOM W WALKER. STEADY GAIT. PT ELOPED. MD AWARE. PT EDUCATED ABOUT NEED TO STAY. REFUSED AND WANTS TO LEAVE.
[2021-02-11 15:01] LABS: MD MORPH REVIEW ONLY
[2021-02-11 15:03] LABS: <PLATELET ESTIMATE> ADEQUATE; <PLT MORPHOLOGY> NORMAL PLT MORPH; ANISOCYTOSIS 2+; HYPOCHROMIA 1+; MICROCYTOSIS 1+; OVALOCYTES 1+; TEAR DROPS 1+
== END 2021-02-11 14:48 | disposition left against medical advice (07) ==
LOC: ED 14:33
DX: F10.220 Alcohol dependence with intoxication, uncomplicated (principal); E87.2 Acidosis; R53.1 Weakness; I48.91 Unspecified atrial fibrillation; M19.90 Unspecified osteoarthritis, unspecified site; R00.0 Tachycardia, unspecified; Z90.49 Acquired absence of other specified parts of digestive tract; Y90.0 Blood alcohol level of less than 20 mg/100 ml
CPT/HCPCS: 36415; 80053; 85025; 93005; 99284

== ENCOUNTER 2021-05-11 23:03 | Inpatient (IN) | payer MEDICAID ==
[~2021-05-11] VITALS: Ht 160 cm; Wt 54.2 kg
[~2021-05-11 23:03] MED LIST changes: +FLUO20CA23 PO; +FLUO20TA25 PO; +FLUT1BLS INH; +GABA-827 PO
--- NOTE | 2021-05-11 23:12 | NUR ---
BIBA FOR SOB. PER EMS PT WAS 80% RA, UP TO 90% AFTER BREATHING TX. HERE PT IS 77% RA, PLACED ON 3 L NC, NOW 93%. PRODUCTIVE COUGH, SITTING UP, SPEAKING IN FULL SENTENCES. HX COPD. RECENTLY DC'D FROM [facility].
[2021-05-11] MEDS ORDERED: ALBUTEROL SULFATE 2.5 MG/3 ML ONE (23:28)
[2021-05-11] MEDS ORDERED: ALBUTEROL SULFATE 2.5MG/0.5ML NPPB ONE (23:30)
[2021-05-11 23:36] LABS: MEAN CORPUSCULAR HEMOGLOBIN 26.6 pg (27.5-34.5); MEAN CORPUSCULAR HGB CONC 32.2 g/dL (33.2-36.2); MEAN PLATELET VOLUME 6.6 fL (7.4-10.4); PLATELET COUNT 463 x10^3/uL (130-400); RED BLOOD COUNT 3.16 x10^6/uL (4.38-5.82); RED CELL DISTRIBUTION WIDTH 22.1 % (9.4-14.8)
[2021-05-11 23:44] LABS: ALBUMIN 2.5 g/dL (3.4-5.0); ANION GAP 8 mmol/L (5-15); CALCIUM 8.2 mg/dL (8.5-10.1); CHLORIDE 103 mmol/L (98-107); CREATININE 0.39 mg/dL (0.7-1.3)
[2021-05-11 23:47] LABS: TROPONIN I < 0.015 ng/mL (0.000-0.045)
[2021-05-12 00:44] LABS: ANISOCYTOSIS 2+; BAND#(MANUAL) 0.25 x10^3/uL; BANDS%(MANUAL) 2 % (0-7); HYPOCHROMIA 1+; LYMPH#(MANUAL) 2.41 x10^3/uL (1-3.4); LYMPHS% (MANUAL) 19 % (22-44); METAMYELOCYTES# (MANUAL) 0.13 x10^3/uL (0-0); METAMYELOCYTES% (MANUAL) 1 % (0-1); MICROCYTOSIS 1+; MONOS#(MANUAL) 1.52 x10^3/uL (0.3-2.7); MONOS% (MANUAL) 12 % (2-9); MYELOCYTES# (MANUAL) 0.64 x10^3/uL (0-0); MYELOCYTES% (MANUAL) 5 % (0-0); PMNS WITH VACUOLES 1+; POLYCHROMASIA 1+; SEG#(MANUAL) 7.75 x10^3/uL (1.8-6.8); SEGS% (MANUAL) 61 % (42-75); TOXIC GRAN 1+
[2021-05-12 00:45] LABS: <PLATELET ESTIMATE> INCREASED; OVALOCYTES 1+; SMALL PLATELETS 1+; TEAR DROPS 1+
[2021-05-12] MEDS ORDERED: AZITHROMYCIN 500 MG in SODIUM CHLORIDE 0.9% 250 ML IV ONE (01:30)
--- NOTE | 2021-05-12 01:44 | NUR ---
report given to dominique jenkins
--- NOTE | 2021-05-12 02:36 | NUR ---
PT REQUESTING MIDLINE FOR IV ACCESS. PT EDUCATED ON POLICIES AND PROCEDURES FOR IV ACCESS. PT FLINCHES WITH IV STICKS. 2 STAFF MEMEBERS TO HELP AND 3 ATTEMPTS MADE FOR IV ACCESS. 22 GAUGE IN LEFT UPPER ARM.
[2021-05-12 03:32] VITALS: BP 142/96
[2021-05-12 06:46] VITALS: BP 142/89
[2021-05-12] MEDS: ALBUTEROL/IPRATROPIUM 2.5MG/0.5MG, 3 ML NPPB SCH ×3 (07:25→20:30)
[2021-05-12] MEDS: BUDESONIDE 0.5 MG/2 ML INHA NPPB SCH ×2 (07:25→20:30)
[2021-05-12] MEDS: THIAMINE 100MG TABLET PO/NG SCH (09:21)
[2021-05-12 12:49] VITALS: BP 121/80
[2021-05-12 16:58] LABS: MICROSCOPIC NOT IND
[2021-05-12] MEDS ORDERED: ENOXAPARIN 40 MG/0.4 ML SQ SCH (18:30)
[2021-05-12 18:45] VITALS: BP 119/78
[2021-05-12] MEDS ORDERED: TRAZODONE 100MG TABLET PO PRN (21:30)
[2021-05-12] MEDS ORDERED: ACETAMINOPHEN 325 MG TABLET PO ONE (21:30)
[2021-05-13] MEDS: ALBUTEROL/IPRATROPIUM 2.5MG/0.5MG, 3 ML NPPB SCH ×2 (03:06→07:33)
[2021-05-13 06:09] LABS: BASOPHILS % (AUTO) 0 % (0-1); EOSINOPHILS % (AUTO) 0 % (1-7); LYMPHOCYTES % (AUTO) 21 % (22-44); MEAN CORPUSCULAR HEMOGLOBIN 27.4 pg (27.5-34.5); MEAN CORPUSCULAR HGB CONC 33.1 g/dL (33.2-36.2); MEAN PLATELET VOLUME 6.5 fL (7.4-10.4); MONOCYTES % (AUTO) 11 % (2-9); NEUTROPHILS % (AUTO) 67 % (42-75); PLATELET COUNT 517 x10^3/uL (130-400); RED BLOOD COUNT 2.88 x10^6/uL (4.38-5.82); RED CELL DISTRIBUTION WIDTH 21.8 % (9.4-14.8)
[2021-05-13 06:11] LABS: ANION GAP 4 mmol/L (5-15); CALCIUM 8.5 mg/dL (8.5-10.1); CHLORIDE 103 mmol/L (98-107)
[2021-05-13 06:12] LABS: CREATININE 0.35 mg/dL (0.7-1.3)
[2021-05-13] MEDS: BUDESONIDE 0.5 MG/2 ML INHA NPPB SCH (07:33)
[2021-05-13] MEDS: THIAMINE 100MG TABLET PO/NG SCH (08:10)
[2021-05-13 08:32] VITALS: BP 96/65
[2021-05-13] MEDS ORDERED: MULTIVITAMIN 1 TABLET PO SCH (09:00)
[2021-05-13] MEDS ORDERED: FOLIC ACID 1 MG TABLET PO SCH (09:00)
[2021-05-13] MEDS ORDERED: ONDANSETRON ODT 4 MG PO PRN (10:00)
== END 2021-05-13 12:17 | disposition left against medical advice (07) | DRG 140 ==
LOC: ED 23:25 → MERGE 05-12 02:11 → EDIP 05-12 02:11 → 3N 05-12 03:14
PROVIDERS: ADMIT Family Medicine; ATTEND Family Medicine
DX: J44.1 Chronic obstructive pulmonary disease with (acute) exacerbation (principal); J96.11 Chronic respiratory failure with hypoxia; E44.0 Moderate protein-calorie malnutrition; I11.0 Hypertensive heart disease with heart failure; I50.9 Heart failure, unspecified; Z99.81 Dependence on supplemental oxygen; D64.9 Anemia, unspecified; E11.9 Type 2 diabetes mellitus without complications; D72.829 Elevated white blood cell count, unspecified; Z66 Do not resuscitate; F17.200 Nicotine dependence, unspecified, uncomplicated; Z68.21 Body mass index [BMI] 21.0-21.9, adult; Z59.0 Homelessness; Z91.19 Patient's noncompliance with other medical treatment and regimen
CPT/HCPCS: 36415; 36600; 84145; 96374; 99285; J7626; 71045; 80048; 81003; 82040; 82803; 83880; 84484; 85025; 87040; 93005; 94640; G0378; J0456; J1650; Q0162; J7050

== ENCOUNTER 2021-05-13 18:56 | Emergency (ER) | payer MEDICAID ==
[~2021-05-13] VITALS: Ht 160 cm; Wt 53.0 kg
[2021-05-13 19:04] VITALS: BP 101/63
--- NOTE | 2021-05-13 20:50 | NUR ---
DATA COMPILER: NIL X 1 WHEN CALLED FOR ROOM
--- NOTE | 2021-05-13 21:12 | NUR ---
SMART GRID ENGINEER: NIL X 2 WHEN CALLED FOR ROOM.
--- NOTE | 2021-05-13 21:28 | NUR ---
ASSISTANT COMMUNITY DIRECTOR: NIL X 3 WHEN CALLED FOR ROOM.
== END 2021-05-13 21:29 | disposition left against medical advice (07) ==
LOC: MERGE 18:56 → ED 19:00
DX: R06.02 Shortness of breath (principal); Z53.21 Procedure and treatment not carried out due to patient leaving prior to being seen by health care provider